=== PATIENT | female | born 1935 | race Caucasian/White ===

== ENCOUNTER 2016-11-23 14:33 | Observation (INO) | payer MEDICARE ==
[~2016-11-23] VITALS: Ht 177.8 cm; Wt 75.4 kg
[2016-11-23] VITALS (8 sets, daily range): BP systolic 119–155; BP diastolic 69–104; PULSE 66–102; RESP 18–20; TEMP 96.4–97.5; O2SAT 93–99
[~2016-11-23 14:33] MED LIST: ALL220TA PO; BUPR-197 PO; LEXA20TA PO; LORTA5 PO; OMEP20TA PO; PRIN20TA2 PO; ROSU5 PO; TIMO0.255 EACH EYE; XANA1TAB6 PO
[2016-11-23] MEDS ORDERED: SODIUM CHLORIDE 0.9% FLUSH 5 ML FLUSH IVF PRN ×2 (15:00→16:30)
[2016-11-23] MEDS ORDERED: ASPIRIN 325 MG TAB PO ONE (15:00)
--- NOTE | 2016-11-23 15:04 | PD ---
HPI Chief Complaint: Chest Pain Time Seen by Provider: 14:53 Travel History International Travel<30 days: No Contact w/Intl Traveler<30days: No Traveled to known affect area: No History of Present Illness HPI The patient was seen and examined in the presence of the nurse. She complains of chest pain. Location is left upper chest. It feels like a pressure. It can last for hours and eventually resolves on its own with no alleviating factors. Been going on for 2 weeks now. No pleuritic component. No fever or chest wall injury or shortness of breath. Never had a stress test since 1982. No history of cardiac disease. Symptom severity is moderate. PFSH Past Medical History Anxiety: Yes Depression: Yes Cancer: Yes (left breast, bilat mastectomy 1984) Cardiovascular Problems: Yes High Cholesterol: Yes Diabetes: No Endocrine: No Genitourinary: No Hepatitis: No Hiatal Hernia: Yes Hypertension: Yes Immune Disorder: No Musculoskeletal: Yes (ARTHRITIS) Neurologic: Yes (NEUROPATHY FEET/ LEGS) Psychiatric: Yes (ANXIETY, DEPRESSION) Reproductive: No Respiratory: No Immunizations Current: No Sickle Cell Disease: No Thyroid Disease: No Menopausal: Yes Past Surgical History AICD: No Body Medical Devices: BREASTS Cardiac Surgery: No Gynecologic Surgery: Yes (HYSTERECTOMY) Hysterectomy: Yes Joint Replacement: No Mastectomy: Yes (BILATERAL) Oral Surgery: Yes (T & A) Pacemaker: No Thoracic Surgery: Yes Tonsillectomy: Yes Other Surgery: Yes (bilat mastectomy, partial hysterectomy. ) Social History Alcohol Use: No Tobacco Use: No Substance Use: No Allergies-Medications (Allergen,Severity, Reaction): Coded Allergies: Keflex (Verified Allergy, Mild, RASH, 08/04/13) Codeine (Verified Adverse Reaction, Mild, NAUSEA, 08/04/13) Reported Meds & Prescriptions Reported Meds & Active Scripts Active Reported Alprazolam 1 Mg Tab 1 Mg PO Q6H PRN Rosuvastatin (Rosuvastatin Calcium) 5 Mg Tab 5 Mg PO DAILY Mirtazapine 15 Mg Tab 15 Mg PO HS Timolol Opth Drops 0.5 % Soln 1 Drop EACH EYE BID Lisinopril 20 Mg Tab 20 Mg PO DAILY Review of Systems General / Constitutional: No: Fever Eyes: No: Visual changes HENT: No: Headaches Cardiovascular: Positive: Chest Pain or Discomfort Respiratory: No: Shortness of Breath Gastrointestinal: No: Abdominal Pain Genitourinary: No: Dysuria Musculoskeletal: No: Pain Skin: No Rash Neurologic: No: Weakness Psychiatric: No: Depression Endocrine: No: Polydipsia Hematologic/Lymphatic: No: Easy Bruising Physical Exam Narrative GENERAL: Well-nourished, well-developed patient in no apparent distress. SKIN: Warm and dry. HEAD: Atraumatic. Normocephalic. EYES: Pupils equal and round. No scleral icterus. No injection or drainage. ENT: No nasal bleeding or discharge. Mucous membranes pink and moist. NECK: Trachea midline. No JVD. CARDIOVASCULAR: Regular rate and rhythm. No murmur appreciated. RESPIRATORY: No accessory muscle use. Clear to auscultation. Breath sounds equal bilaterally. GASTROINTESTINAL: Abdomen soft, non-tender, nondistended. Hepatic and splenic margins not palpable. MUSCULOSKELETAL: No obvious deformities. No clubbing. No cyanosis. No edema. No chest wall tenderness NEUROLOGICAL: Awake and alert. No obvious cranial nerve deficits. Motor grossly within normal limits. Normal speech. PSYCHIATRIC: Appropriate mood and affect; insight and judgment normal. Data Data Last Documented VS Vital Signs Date Time Temp Pulse Resp B/P Pulse Ox O2 Delivery O2 Flow Rate FiO2 11/23/16 15:23 81 16 11/23/16 15:23 97 11/23/16 14:37 97.5 137/104 Orders Basic Metabolic Panel (Bmp) (11/23/16 14:58) Ckmb (Isoenzyme) Profile (11/23/16 14:58) Complete Blood Count With Diff (11/23/16 14:58) Prothrombin Time / Inr (Pt) (11/23/16 14:58) Act Partial Throm Time (Ptt) (11/23/16 14:58) Troponin I (11/23/16 14:58) Ecg Monitoring (11/23/16 14:58) Iv Access Insert/Monitor (11/23/16 14:58) Oximetry (11/23/16 14:58) Aspirin (Aspirin) (11/23/16 15:00) Sodium Chloride 0.9% Flush (Ns Flush) (11/23/16 15:00) Chest, Single Ap (11/23/16 ) Admit Order (Ed Use Only) (11/23/16 15:53) Labs Laboratory Tests Test 11/23/16 14:50 White Blood Count 7.6 TH/MM3 Red Blood Count 4.95 MIL/MM3 Hemoglobin 13.8 GM/DL Hematocrit 43.0 % Mean Corpuscular Volume 86.8 FL Mean Corpuscular Hemoglobin 27.9 PG Mean Corpuscular Hemoglobin 32.1 % Concent Red Cell Distribution Width 12.2 % Platelet Count 228 TH/MM3 Mean Platelet Volume 8.3 FL Neutrophils (%) (Auto) 72.2 % Lymphocytes (%) (Auto) 20.8 % Monocytes (%) (Auto) 5.7 % Eosinophils (%) (Auto) 0.7 % Basophils (%) (Auto) 0.6 % Neutrophils # (Auto) 5.5 TH/MM3 Lymphocytes # (Auto) 1.6 TH/MM3 Monocytes # (Auto) 0.4 TH/MM3 Eosinophils # (Auto) 0.1 TH/MM3 Basophils # (Auto) 0.0 TH/MM3 CBC Comment DIFF FINAL Differential Comment Prothrombin Time 10.9 SEC Prothromb Time International 1.0 RATIO Ratio Activated Partial 26.6 SEC Thromboplast Time Sodium Level 133 MEQ/L Potassium Level 3.5 MEQ/L Chloride Level 97 MEQ/L Carbon Dioxide Level 25.1 MEQ/L Anion Gap 11 MEQ/L Blood Urea Nitrogen 6 MG/DL Creatinine 0.75 MG/DL Estimat Glomerular Filtration 74 ML/MIN Rate Random Glucose 102 MG/DL Calcium Level 8.6 MG/DL Total Creatine Kinase 40 U/L Troponin I LESS THAN 0.02 NG/ML MDM Medical Decision Making Medical Screen Exam Complete: Yes Emergency Medical Condition: Yes Medical Record Reviewed: Yes Differential Diagnosis Differential diagnosis includes OH, angina, pericarditis, pleurisy, GERD, anxiety. Narrative Course I have reviewed the patient's electronic medical record. IV placed I reviewed the EKG which shows sinus rhythm but no acute ST elevation I reviewed the chest x-ray which looks normal Extended cardiac monitoring shows sinus rhythm without ectopy CBC is normal Metabolic profile is normal CK is normal Troponin is normal Coagulation studies are normal I gave her an aspirin Patient's been having a lot of anxiety and stress lately. Her neighbor tells me that her son was recently shot and killed. However she is 81 and will require chest pain center evaluation for 23 hour observation on telemetry to rule out cardiac cause of her symptoms. Call is in place to the hospitalist to discuss Diagnosis Primary Impression: Precordial chest pain Admitting Information Admitting Physician Requests: Observation Christian Win MD Nov 23, 2016 15:04
[2016-11-23 15:22] LABS: AUTOMATED NEUTROPHIL # 5.5 TH/MM3 (1.8-7.7); BASOPHIL % 0.6 % (0.0-2.0); EOSINOPHIL # 0.1 TH/MM3 (0-0.4); EOSINOPHIL % 0.7 % (0.0-4.0); LYMPH % 20.8 % (9.0-44.0); LYMPHOCYTE # 1.6 TH/MM3 (1.0-4.8); MEAN CELL VOLUME 86.8 FL (80.0-100.0); MEAN CORPUSCULAR HEMOGLOBIN 27.9 PG (27.0-34.0); MEAN CORPUSCULAR HGB CONC 32.1 % (32.0-36.0); MONO % 5.7 % (0.0-8.0); NEUT % 72.2 % (16.0-70.0); PLATELET COUNT 228 TH/MM3 (150-450); RED BLOOD COUNT 4.95 MIL/MM3 (4.00-5.30); RED CELL DISTRIBUTION WIDTH 12.2 % (11.6-17.2); WHITE BLOOD COUNT 7.6 TH/MM3 (4.0-11.0)
[2016-11-23 15:23] LABS: HEMO FLAGS DIFF FINAL
[2016-11-23] MEDS ORDERED: MIRTA15 PO (15:29)
[2016-11-23] MEDS ORDERED: ROSU1TAB4 PO (15:29)
[2016-11-23] MEDS ORDERED: ALPR1TAB3 PO (15:29)
[2016-11-23] MEDS ORDERED: LISI-515 PO (15:29)
[2016-11-23] MEDS ORDERED: TIMO0.5S30 EACH EYE (15:29)
[2016-11-23 15:30] LABS: CHLORIDE 97 MEQ/L (98-107); POTASSIUM 3.5 MEQ/L (3.5-5.1); SODIUM (NA) 133 MEQ/L (136-145)
[2016-11-23 15:34] LABS: ANION GAP 11 MEQ/L (5-15); APTT (PATIENT) 26.6 SEC (24.3-30.1); BICARBONATE 25.1 MEQ/L (21.0-32.0); PROTHROMBIN TIME - PATIENT 10.9 SEC (9.8-11.6)
[2016-11-23 15:35] LABS: BLOOD UREA NITROGEN 6 MG/DL (7-18)
[2016-11-23 15:38] LABS: GLOMERULAR FILTRATION RATE 74 ML/MIN (>89)
[2016-11-23 15:43] LABS: CREATINE KINASE 40 U/L (26-192)
--- NOTE | 2016-11-23 15:57 | RADHPO ---
EXAM DATE/TIME: 11/23/2016 15:11 [facility] COMPARISON: CHEST PA & LAT, August 04, 2013, 9:59. INDICATIONS : Chest pain MEDICAL HISTORY : Hypertension. Asthma SURGICAL HISTORY : None. ENCOUNTER: Initial ACUITY: 3 days PAIN SCORE: 5/10 LOCATION: Bilateral chest FINDINGS: A single view of the chest demonstrates the lungs to be symmetrically aerated without evidence of mas s, infiltrate or effusion. The cardiomediastinal contours are unremarkable. Osseous structures are intact. CONCLUSION: No evidence of acute cardiopulmonary disease. Devaughn Parson MD on November 23, 2016 at 15:55 Board Certified Radiologist. This report was verified electronically.
[2016-11-23] MEDS ORDERED: NITROGLYCERIN 0.4 MG SL 25 TABS/BTL SL PRN (16:30)
[2016-11-23] MEDS ORDERED: ACETAMINOPHEN 500 MG CPLT PO PRN (17:00)
[2016-11-23] MEDS ORDERED: ALPRAZolam 1 MG TAB PO PRN (18:00)
[2016-11-23] MEDS ORDERED: ONDANSETRON HCL 4 MG/2 ML VIAL IV PRN (18:00)
--- NOTE | 2016-11-23 18:27 | HHI.HP ---
[facility] Zac Rosenbaum Admission Diagnosis chest pain Diagnoses: (1) Chest pain Diagnosis: Principal (2) Anxiety Diagnosis: Principal Chief Complaint: chest pain Travel History International Travel<30 Days: No Contact w/Intl Traveler <30 Da: No Traveled to Known Affected Are: No History of Present Illness 81 year-old female with history of hypertension, hyperlipidemia, GERD , bowel resection, breast cancer, anxiety and depression presents with complaint of chest pain located over the left anterior chest describes it as a heaviness. Patient states the pain has been building and has been worse in the last couple of weeks. Pain comes and goes. She states she could hardly breathe. Denies pain being associated with exertion. Denies any diaphoresis or numbness or tingling. She states she couldn't sleep. She states she takes Xanax 1 mg twice a day every day which hasn't been helping. She states she is weak. Patient that she has been suffering for 2 months and lives alone. She states her son in a road rage incident in August when he was shot 9 times. She does admit to history of panic attacks but she is not sure if it feels the same. Additionally states she has a wound to the leg from her dog and has had bandage in place for 4 days. Review of Systems Other ROS x 10 negative unless otherwise states above. Past Family Social History Past Medical History Anxiety and depression Breast cancer with bilateral mastectomy and reconstruction Hyperlipidemia Hypertension GERD EMR indicates history of sigmoid diverticulosis and colitis and patient states she has had 15 inches of her intestine including colon resected. Past Surgical History Bilateral mastectomy and reconstruction Hysterectomy Tonsillectomy and adenoidectomy Reported Medications Alprazolam 1 Mg Tab 1 Mg PO Q6H PRN Rosuvastatin (Rosuvastatin Calcium) 5 Mg Tab 5 Mg PO DAILY Mirtazapine 15 Mg Tab 15 Mg PO HS Timolol Opth Drops 0.5 % Soln 1 Drop EACH EYE BID Lisinopril 20 Mg Tab 20 Mg PO DAILY Allergies: Coded Allergies: Keflex (Verified Allergy, Mild, RASH, 08/04/13) Codeine (Verified Adverse Reaction, Mild, NAUSEA, 08/04/13) Family History Father and mother of heart disease. Brother at age 49 suddenly from heart disease. Social History Patient denies ever smoking cigarettes. Physical Exam Vital Signs Vital Signs Date Time Temp Pulse Resp B/P Pulse Ox O2 Delivery O2 Flow Rate FiO2 11/23/16 17:30 97.2 70 18 153/72 99 11/23/16 17:21 68 16 119/69 97 11/23/16 15:23 81 16 11/23/16 15:23 97 11/23/16 14:37 97.5 102 20 137/104 Physical Exam GENERAL: This is a well-nourished, well-developed patient, in no apparent distress. SKIN: Patient shows me a bandaged wound to the right proximal medial lower leg. There does not appear to be any erythema. HEAD: Atraumatic. Normocephalic. EYES: No scleral icterus. No injection or drainage. NECK: Trachea midline. CARDIOVASCULAR: Regular rate and rhythm. RESPIRATORY: Clear to auscultation. Breath sounds equal bilaterally. No wheezes , rales, or rhonchi. GASTROINTESTINAL: Abdomen soft, non-tender, nondistended. MUSCULOSKELETAL: No lower extremity edema bilaterally. NEUROLOGICAL: Awake and alert. Motor grossly within normal limits. Normal speech. Laboratory Laboratory Tests Test 11/23/16 14:50 White Blood Count 7.6 Red Blood Count 4.95 Hemoglobin 13.8 Hematocrit 43.0 Mean Corpuscular Volume 86.8 Mean Corpuscular Hemoglobin 27.9 Mean Corpuscular Hemoglobin 32.1 Concent Red Cell Distribution Width 12.2 Platelet Count 228 Mean Platelet Volume 8.3 Neutrophils (%) (Auto) 72.2 Lymphocytes (%) (Auto) 20.8 Monocytes (%) (Auto) 5.7 Eosinophils (%) (Auto) 0.7 Basophils (%) (Auto) 0.6 Neutrophils # (Auto) 5.5 Lymphocytes # (Auto) 1.6 Monocytes # (Auto) 0.4 Eosinophils # (Auto) 0.1 Basophils # (Auto) 0.0 CBC Comment DIFF FINAL Differential Comment Prothrombin Time 10.9 Prothromb Time International 1.0 Ratio Activated Partial 26.6 Thromboplast Time Sodium Level 133 Potassium Level 3.5 Chloride Level 97 Carbon Dioxide Level 25.1 Anion Gap 11 Blood Urea Nitrogen 6 Creatinine 0.75 Estimat Glomerular Filtration 74 Rate Random Glucose 102 Calcium Level 8.6 Total Creatine Kinase 40 Troponin I LESS THAN 0.02 Result Diagram: 11/23/16 1450 11/23/16 1450 Assessment and Plan Assessment and Plan 81 year-old female with: Chest pain: Left anterior chest heaviness. Likely due to anxiety. CBC unremarkable. Troponin 1 < 0.02. EKG #[address]-T changes, primarily T-wave inversion in inferior, anterior, and lateral leads. -Serial EKGs and cardiac enzymes -Nitroglycerin prn chest pain -Patient received 325 mg aspirin in ED at 1507 today -If ACS ruled out, patient will need to undergo a nuclear stress test. Nothing by mouth after midnight. No caffeine or decaf after 7 PM. Anxiety: Patient has significant anxiety. She does not wish to go see a psychiatrist. -Continue home alprazolam. R leg wound: minor. RN order to clean and dress. Did not appear infected around bandage. Afebrile. Chronic medical problems include hypertension and hyperlipidemia. -Continue home medications. DVT prevention: SCDs. Written by Zainab Martinez PA-C acting as scribe for Dr. Roque on 11/23/16 at 1750. The documentation accurately reflects the work and decisions performed face-to- face by me Dr. Roque on 11/23/16 at 1750. Discussed Condition With ED physician, patient Zainab Martinez Nov 23, 2016 18:27
[2016-11-23 18:58] LABS: CREATINE KINASE 39 U/L (26-192)
[2016-11-23] MEDS ORDERED: MIRTAZAPINE 15 MG TAB PO SCH (21:00)
[2016-11-23] MEDS: TIMOLOL MALEATE 0.5% OPHT SOLN 5 ML BTL EACH EYE SCH (22:20)
[2016-11-23] MEDS: SODIUM CHLORIDE 0.9% FLUSH 5 ML FLUSH IVF SCH (22:21)
[2016-11-23 22:38] LABS: CREATINE KINASE 36 U/L (26-192)
[2016-11-24] VITALS: BP 139/62; PULSE 71; RESP 16; TEMP 96.9; O2SAT 94
[2016-11-24 04:00] VITALS: BP 121/62; PULSE 70; RESP 16; TEMP 96; O2SAT 95
[2016-11-24 08:00] VITALS: BP 147/88; PULSE 80; RESP 19; TEMP 98.1; O2SAT 93
[2016-11-24 08:14] VITALS: PULSE 73
[2016-11-24] MEDS ORDERED: LISINOPRIL 20 MG TAB PO SCH (09:00)
[2016-11-24] MEDS: TIMOLOL MALEATE 0.5% OPHT SOLN 5 ML BTL EACH EYE SCH (09:00)
[2016-11-24] MEDS ORDERED: ATORVASTATIN 10 MG TAB PO SCH (09:00)
[2016-11-24] MEDS: SODIUM CHLORIDE 0.9% FLUSH 5 ML FLUSH IVF SCH (09:04)
[2016-11-24] MEDS ORDERED: REGADENOSON INJ 0.4 MG/5 ML SYR IV ONE (10:02)
--- NOTE | 2016-11-24 11:40 | RADHPO ---
EXAM DATE/TIME: 11/24/2016 10:31 [facility] COMPARISON: No previous studies available for comparison. INDICATIONS : Left chest pain for two weeks. Right bundle branch block. DOSE: 25.7 mCi Tc99m Myoview at stress. 8.4 mCi Tc99m Myoview at rest. 0.4 mg Lexiscan STRESS SYMPTOMS: Dyspnea and lightheadedness. EJECTION FRACTION: > 70% MEDICAL HISTORY : Hypercholesterolemia. Hernia, hiatal. Gastroesophageal reflux disease. Hypertension. SURGICAL HISTORY : Tonsillectomy. Hysterectomy. Mastectomy, bilateral. Bowel resection. ENCOUNTER: Initial ACUITY: 2 weeks PAIN SCALE: 5/10 LOCATION: Left chest TECHNIQUE: The patient underwent pharmacologic stress with infusion of prescribed dose. Continuous ECG tracing was monitored during stress. Gated SPECT imaging was performed after stress and conventional SPECT i maging was performed at rest. The examination was performed on a SPECT/CT scanner, both attenuation and non-corrected datasets were reviewed. FINDINGS: DISTRIBUTION: The maximum perfused segment at stress is in the apical wall. PERFUSION STUDY: The pattern of perfusion at stress is within normal limits. GATED STUDY: There is intact wall motion and thickening without hypokinetic or dyskinetic segments. CONCLUSION: Unremarkable myocardial perfusion exam. RISK CATEGORY: Low Clint Herring MD on November 24, 2016 at 11:38 Board Certified Radiologist. This report was verified electronically.
--- NOTE | 2016-11-24 11:42 | HHI.DCPOC ---
Discharge Care Plan Diagnosis: (1) Chest pain Goals to Promote Your Health * To prevent worsening of your condition and complications * To maintain your health at the optimal level Directions to Meet Your Goals Take your medications as prescribed Follow your dietary instruction Follow activity as directed Keep your appointments as scheduled Take your immunizations and boosters as scheduled If your symptoms worsen call your PCP, if no PCP go to Urgent Care Center or Emergency Room Smoking is Dangerous to Your Health. Avoid second hand smoke Call the 24-hour hour crisis hotline for domestic abuse at Christian Araiza Nov 24, 2016 11:41
--- NOTE | 2016-11-24 11:57 | HHI.PR ---
Subjective Remarks Patient seen and examined today. Patient denies any new complaints. Patient states that anxiety is much improved. Has not had any recurrent panic attacks Objective Vitals Vital Signs Date Time Temp Pulse Resp B/P Pulse Ox O2 Delivery O2 Flow Rate FiO2 11/24/16 08:14 73 11/24/16 08:00 98.1 80 19 147/88 93 11/24/16 04:00 96.0 70 16 121/62 95 11/24/16 00:00 96.9 71 16 139/62 94 11/23/16 20:32 68 11/23/16 20:00 96.4 74 18 155/75 97 11/23/16 19:58 93 21 11/23/16 18:42 66 11/23/16 17:30 97.2 70 18 153/72 99 11/23/16 17:21 68 16 119/69 97 11/23/16 15:23 81 16 11/23/16 15:23 97 11/23/16 14:37 97.5 102 20 137/104 I/O 11/23/16 11/23/16 11/23/16 11/24/16 11/24/16 11/24/16 06:59 14:59 22:59 06:59 14:59 22:59 Intake Total 0 ml 0 ml Balance 0 ml 0 ml Intake IV Total 0 ml 0 ml # Voids 3 2 # Bowel Movements 1 0 Result Diagram: 11/23/16 1450 11/23/16 1450 Objective Remarks GENERAL: Well-developed, well-nourished, in no acute distress. alert and orientated HEENT: Head is normocephalic without any lesions or masses noted. Facial features are symmetric. Eyes: Extraocular muscles are intact. Conjunctivae were clear. NECK: Supple without any masses. Trachea midline no deviation. No JVD, CARDIAC: Regular rhythm, regular rate. S1/S2 are heard. No murmurs gallops or rubs. LUNGS: Clear to auscultation bilaterally. No wheeze, rhonchi or rales. No use of accessory muscles on inspiration or expiration. ABDOMEN: Soft, nontender. Nondistended. Bowel sounds heard in all 4 quadrants. No organomegaly or masses. Negative rebound, negative guarding EXTREMITIES: No edema, pulses are equal bilaterally. No cyanosis or clubbing NEUROLOGY: Mood and affect appear appropriate. Cranial nerves II through XII grossly intact. Moving all extremities, speech is clear Urinary Catheter: No Vascular Central Line Catheter: No A/P Assessment and Plan Chest pain: Left anterior chest heaviness. Resolved -Likely due to anxiety. -Serial EKGs do not indicate any changes -Serial cardiac enzymes remain negative -Nitroglycerin prn chest pain -Patient received 325 mg aspirin in ED at 1507 today -Acute coronary event has been ruled out. Patient did undergo nuclear stress test which was unremarkable for any ischemia. Low risk Anxiety: Patient has significant anxiety. She does not wish to go see a psychiatrist. -Continue home alprazolam. R leg wound: minor. RN order to clean and dress. Did not appear infected around bandage. Afebrile. Chronic medical problems include hypertension and hyperlipidemia. -Continue home medications. DVT prevention: SCDs. Written by Christian Araiza PA-C, acting as scribe for Dr. Roque on 11/24/16 at 1145. The documentation accurately reflects the work and decisions performed face-to- face by Dr. Roque on 11/24/16 at 1145. Discharge Planning Discharge home in stable condition Activity: Ad windy. Diet: Healthy heart diet Medications per medication reconciliation Follow-up primary medical doctor in one week Christian Araiza Nov 24, 2016 11:57
[2016-11-24 12:00] VITALS: BP 138/82; PULSE 78; RESP 18; TEMP 98; O2SAT 94
--- NOTE | 2016-11-24 16:57 | EKG ---
Date Performed: 11/23/2016 Time Performed: 14:55:00 PTAGE: 81 years EKG: Sinus rhythm Leftward axis Extensive ST-T changes may be due to myocardial ischemia Abnormal ECG Since PREVIOUS TRACING , no significant change noted PREVIOUS TRACIN08/04/2013 09.33 DOCTOR: Fide Hollingsworth Interpretating Date/Time 11/24/2016 16:57:20
--- NOTE | 2016-11-24 16:57 | EKG ---
Date Performed: 11/23/2016 Time Performed: 18:02:36 PTAGE: 81 years EKG: Sinus rhythm . Extensive ST-T changes may be due to myocardial ischemia Abnormal ECG Since PREVIOUS TRACING , no significant change noted PREVIOUS TRACIN08/04/2013 09.33 DOCTOR: Fide Hollingsworth Interpretating Date/Time 11/24/2016 16:57:31
--- NOTE | 2016-11-24 17:00 | EKG ---
Date Performed: 11/23/2016 Time Performed: 21:05:08 PTAGE: 81 years EKG: Sinus rhythm . Leftward axis Right bundle branch block Possible left ventricular hypertrophy Inferior/lateral ST-T changes are probably due to ventricular hypertrophy Since previous tracing, no significant change no clement Abnormal ECG PREVIOUS TRACING : 11/23/2016 18.02 DOCTOR: Fide Hollingsworth Interpretating Date/Time 11/24/2016 16:57:54
--- NOTE | 2016-11-24 17:03 | TR ---
Date Performed: 11/24/2016 Time Performed: 10:37:49 DOCTOR: Fide Hollingsworth DRUG LIST: CLINICAL HISTORY: REASON FOR TEST: Chest pain. REASON FOR ENDING: OBSERVATION: CONCLUSION: Lexiscan stress test was performed under standard four minute protocol. Radionuclid e was injected one minute prior to ending the test. No electrocardiographic abormalities were present to suggest ischemia. Nuclear imaging and interpretation are pending. COMMENTS:
== END 2016-11-24 13:45 | disposition home or self-care (01) ==
LOC: PHED 14:33 → PHEDA 15:54 → PH3A 17:27
PROVIDERS: ADMIT Family Medicine; ATTEND Family Medicine
DX: R07.2 Precordial pain (principal); E78.00 Pure hypercholesterolemia, unspecified; I10 Essential (primary) hypertension; K44.9 Diaphragmatic hernia without obstruction or gangrene; K21.9 Gastro-esophageal reflux disease without esophagitis; E78.5 Hyperlipidemia, unspecified; K57.30 Diverticulosis of large intestine without perforation or abscess without bleeding; M19.90 Unspecified osteoarthritis, unspecified site; Z85.3 Personal history of malignant neoplasm of breast; Z90.13 Acquired absence of bilateral breasts and nipples
CPT/HCPCS: 71010; 78452; 80048; 82550; 84484; 85025; 85610; 85730; 93005; 93017; 99285; A9502; G0378; J2785

== ENCOUNTER 2017-05-17 07:34 | Observation (INO) | payer MEDICARE ==
[~2017-05-17] VITALS: Ht 172.7 cm; Wt 70.0 kg
[~2017-05-17 07:34] MED LIST changes: -ALL220TA PO; +ALPR1TAB3 PO; -BUPR-197 PO; -LEXA20TA PO; +LISI-515 PO; -LORTA5 PO; +MIRTA15 PO; -OMEP20TA PO; -PRIN20TA2 PO; +ROSU1TAB4 PO; -ROSU5 PO; -TIMO0.255 EACH EYE; +TIMO0.5S30 EACH EYE; -XANA1TAB6 PO
[2017-05-17 07:37] VITALS: BP 122/67; PULSE 93; RESP 20; TEMP 98.3; O2SAT 98
[2017-05-17 07:40] VITALS: BP 122/67; PULSE 90; RESP 18; O2SAT 99
[2017-05-17] MEDS ORDERED: SODIUM CHLOR 0.9% 1000 ML INJ 1,000 ML IV ONE (07:57)
--- NOTE | 2017-05-17 07:59 | PD ---
HPI Chief Complaint: Fall Time Seen by Provider: 07:57 Travel History International Travel<30 days: No Contact w/Intl Traveler<30days: No Traveled to known affect area: No History of Present Illness HPI Patient is an 81-year-old female with history of hypertension, hyperlipidemia, GERD, bowel resection, breast cancer, anxiety, depression, presents to the emergency with syncopal episodes. Patient reports that she lives at home by herself and her pets. Patient reports that she also has history of sciatica for the past 20 years. Reports that her sciatica has been acting up since - denies any prior falls leading up to her sciatica. Reports that she now has to use her neighbor's walker to ambulate because of her left hip pain and sciatica. Patient reports that this morning, she got out of her bed and was walking with her walker. Patient reports that she felt lightheaded and dizzy and passed out landing onto a floor in her home. Patient reports that she thinks that she was "passed out" for about 15 minutes at a time. Denies chest pain/sob. She does report a laceration to her right scalp. Patient reports that she currently is not on anticoagulants, reports headache at this time, no neck pain, no back pain, or chest pain or abdominal pain. Patient reports that she is unable to ambulate and complains of pain to her left hip. PFSH Past Medical History Anxiety: Yes Depression: Yes Heart Rhythm Problems: No Cancer: Yes (left breast, bilat mastectomy 1984) Cardiac Catheterization: No Cardiovascular Problems: No High Cholesterol: Yes Congestive Heart Failure: No Diabetes: No Diminished Hearing: No Diverticulitis: Yes Endocrine: No Gastrointestinal Disorders: Yes (GERD) Genitourinary: No Headaches: Yes Hepatitis: No Hiatal Hernia: Yes Heparin Induced Thrombocytopen: No Hypertension: Yes Immune Disorder: No Musculoskeletal: Yes (ARTHRITIS) Neurologic: Yes (NEUROPATHY FEET/ LEGS) Psychiatric: Yes (ANXIETY, DEPRESSION) Reproductive: No Respiratory: No Immunizations Current: No Sickle Cell Disease: No Thyroid Disease: No Tetanus Vaccination: Unknown Influenza Vaccination: No Menopausal: Yes Past Surgical History Abdominal Surgery: Yes (50 IN OF INTESTINES REMOVED AND PARTIAL COLON ) AICD: No Body Medical Devices: BREASTS Cardiac Surgery: No Coronary Artery Bypass Graft: No Gynecologic Surgery: Yes (HYSTERECTOMY) Hysterectomy: Yes Joint Replacement: No Mastectomy: Yes (BILATERAL) Neurologic Surgery: No Oral Surgery: Yes (T & A) Pacemaker: No Thoracic Surgery: Yes Tonsillectomy: Yes (T & A) Other Surgery: Yes (bilat mastectomy, partial hysterectomy. ) Family History Family Myocardial Infarction: Yes Social History Alcohol Use: No Tobacco Use: No Substance Use: No Allergies-Medications (Allergen,Severity, Reaction): Coded Allergies: Keflex (Verified Allergy, Mild, RASH, 05/17/17) Codeine (Verified Adverse Reaction, Mild, NAUSEA, 05/17/17) Reported Meds & Prescriptions Reported Meds & Active Scripts Active Reported Alprazolam 1 Mg Tab 1 Mg PO Q6H PRN Rosuvastatin (Rosuvastatin Calcium) 5 Mg Tab 5 Mg PO DAILY Mirtazapine 15 Mg Tab 15 Mg PO HS Timolol Opth Drops 0.5 % Soln 1 Drop EACH EYE BID Lisinopril 20 Mg Tab 20 Mg PO DAILY Review of Systems General / Constitutional: No: Fever Eyes: No: Visual changes HENT: No: Headaches Cardiovascular: No: Chest Pain or Discomfort Respiratory: No: Shortness of Breath Gastrointestinal: No: Abdominal Pain Genitourinary: No: Dysuria Musculoskeletal: No: Pain Skin: No Rash Neurologic: Positive: Weakness, Syncope Psychiatric: No: Depression Endocrine: No: Polydipsia Hematologic/Lymphatic: No: Easy Bruising Physical Exam Narrative GENERAL: mild distress SKIN: Focused skin assessment warm/dry. patient with 1cm laceration to right lateral scalp HEAD: Atraumatic. Normocephalic. EYES: Pupils equal and round. No scleral icterus. No injection or drainage. ENT: No nasal bleeding or discharge. Mucous membranes pink and moist. NECK: Trachea midline. No JVD. CARDIOVASCULAR: Regular rate and rhythm. No murmur appreciated. RESPIRATORY: No accessory muscle use. Clear to auscultation. Breath sounds equal bilaterally. GASTROINTESTINAL: Abdomen soft, non-tender, nondistended. Hepatic and splenic margins not palpable. MUSCULOSKELETAL: No obvious deformities, patient with pain with ROM to left hip , No edema. NEUROLOGICAL: Awake and alert. No obvious cranial nerve deficits. Motor grossly within normal limits. Normal speech. PSYCHIATRIC: Appropriate mood and affect; insight and judgment normal. Data Data Last Documented VS Vital Signs Date Time Temp Pulse Resp B/P Pulse Ox O2 Delivery O2 Flow Rate FiO2 05/17/17 07:40 18 99 Room Air 05/17/17 07:40 90 122/67 05/17/17 07:37 98.3 Orders Electrocardiogram (05/17/17 07:57) Complete Blood Count With Diff (05/17/17 07:57) Comprehensive Metabolic Panel (05/17/17 07:57) Magnesium (Mg) (05/17/17 07:57) B-Type Natriuretic Peptide (05/17/17 07:57) Ckmb (Isoenzyme) Profile (05/17/17 07:57) Troponin I (05/17/17 07:57) Act Partial Throm Time (Ptt) (05/17/17 07:57) Prothrombin Time / Inr (Pt) (05/17/17 07:57) Urinalysis - C+S If Indicated (05/17/17 07:57) Chest, Single Ap (05/17/17 07:57) Ct Brain W/O Iv Contrast(Rout) (05/17/17 07:57) Ct Cerv Spine W/O Contrast (05/17/17 07:57) Ecg Monitoring (05/17/17 07:57) Iv Access Insert/Monitor (05/17/17 07:57) Oximetry (05/17/17 07:57) Sodium Chloride 0.9% Flush (Ns Flush) (05/17/17 08:00) Sodium Chlor 0.9% 1000 Ml Inj (Ns 1000 M (05/17/17 07:57) Hip, Uni(Ap&Lat) W Ap Pelvis (05/17/17 ) Tetanus/Diphtheria Tox Adult (Tetanus/Di (05/17/17 08:00) Acetaminophen (Tylenol) (05/17/17 08:15) Electrocardiogram (05/17/17 ) Labs Laboratory Tests Test 05/17/17 08:25 White Blood Count 9.4 TH/MM3 Red Blood Count 4.40 MIL/MM3 Hemoglobin 12.6 GM/DL Hematocrit 37.2 % Mean Corpuscular Volume 84.5 FL Mean Corpuscular Hemoglobin 28.6 PG Mean Corpuscular Hemoglobin 33.8 % Concent Red Cell Distribution Width 12.9 % Platelet Count 157 TH/MM3 Mean Platelet Volume 8.4 FL Neutrophils (%) (Auto) 84.9 % Lymphocytes (%) (Auto) 7.3 % Monocytes (%) (Auto) 7.4 % Eosinophils (%) (Auto) 0.2 % Basophils (%) (Auto) 0.2 % Neutrophils # (Auto) 8.0 TH/MM3 Lymphocytes # (Auto) 0.7 TH/MM3 Monocytes # (Auto) 0.7 TH/MM3 Eosinophils # (Auto) 0.0 TH/MM3 Basophils # (Auto) 0.0 TH/MM3 CBC Comment DIFF FINAL Differential Comment Prothrombin Time 10.5 SEC Prothromb Time International 1.0 RATIO Ratio Activated Partial 21.5 SEC Thromboplast Time Sodium Level 134 MEQ/L Potassium Level 4.0 MEQ/L Chloride Level 101 MEQ/L Carbon Dioxide Level 25.5 MEQ/L Anion Gap 8 MEQ/L Blood Urea Nitrogen 11 MG/DL Creatinine 0.65 MG/DL Estimat Glomerular Filtration 88 ML/MIN Rate Random Glucose 108 MG/DL Calcium Level 9.1 MG/DL Magnesium Level 2.2 MG/DL Total Bilirubin 0.8 MG/DL Aspartate Amino Transf 20 U/L (AST/SGOT) Alanine Aminotransferase 24 U/L (ALT/SGPT) Alkaline Phosphatase 77 U/L Total Creatine Kinase 70 U/L Troponin I LESS THAN 0.02 NG/ML B-Type Natriuretic Peptide 35 PG/ML Total Protein 6.9 GM/DL Albumin 2.7 GM/DL MDM Medical Decision Making Medical Screen Exam Complete: Yes Emergency Medical Condition: Yes Interpretation(s) Vital Signs Date Time Temp Pulse Resp B/P Pulse Ox O2 Delivery O2 Flow Rate FiO2 05/17/17 07:40 90 18 122/67 99 05/17/17 07:37 98.3 93 20 122/67 98 Differential Diagnosis Syncopal episode could be secondary to ACS, electrolyte abnormality, intracranial hemorrhage, UTI, infection, sciatica Narrative Course 81-year-old female who presents to emergency room with syncopal episode. Patient lives at home by herself, reports that she ambulating today, she felt lightheaded and dizzy and "passed out for 15 minutes" this morning. Patient reports that she has not been able to ambulate as she has pain to her left hip. Patient currently not on any anticoagulants, complete of a headache. Plan to obtain CT of her head and neck, x-rays of her chest, left hip and pelvis ordered as she does have pain with range of motion to her left hip. Lab work ordered to evaluate for possible electrolyte abnormalities. Patient was placed on a cardiac rehab nurse upon arrival to the emergency room. Laboratory Tests Test 05/17/17 08:25 White Blood Count 9.4 TH/MM3 (4.0-11.0) Red Blood Count 4.40 MIL/MM3 (4.00-5.30) Hemoglobin 12.6 GM/DL (11.6-15.3) Hematocrit 37.2 % (35.0-46.0) Mean Corpuscular Volume 84.5 FL (80.0-100.0) Mean Corpuscular Hemoglobin 28.6 PG (27.0-34.0) Mean Corpuscular Hemoglobin 33.8 % Concent (32.0-36.0) Red Cell Distribution Width 12.9 % (11.6-17.2) Platelet Count 157 TH/MM3 (150-450) Mean Platelet Volume 8.4 FL (7.0-11.0) Neutrophils (%) (Auto) 84.9 % (16.0-70.0) Lymphocytes (%) (Auto) 7.3 % (9.0-44.0) Monocytes (%) (Auto) 7.4 % (0.0-8.0) Eosinophils (%) (Auto) 0.2 % (0.0-4.0) Basophils (%) (Auto) 0.2 % (0.0-2.0) Neutrophils # (Auto) 8.0 TH/MM3 (1.8-7.7) Lymphocytes # (Auto) 0.7 TH/MM3 (1.0-4.8) Monocytes # (Auto) 0.7 TH/MM3 (0-0.9) Eosinophils # (Auto) 0.0 TH/MM3 (0-0.4) Basophils # (Auto) 0.0 TH/MM3 (0-0.2) CBC Comment DIFF FINAL Differential Comment Prothrombin Time 10.5 SEC (9.8-11.6) Prothromb Time International 1.0 RATIO Ratio Activated Partial 21.5 SEC Thromboplast Time (24.3-30.1) Sodium Level 134 MEQ/L (136-145) Potassium Level 4.0 MEQ/L (3.5-5.1) Chloride Level 101 MEQ/L (98-107) Carbon Dioxide Level 25.5 MEQ/L (21.0-32.0) Anion Gap 8 MEQ/L (5-15) Blood Urea Nitrogen 11 MG/DL (7-18) Creatinine 0.65 MG/DL (0.50-1.00) Estimat Glomerular Filtration 88 ML/MIN (>89) Rate Random Glucose 108 MG/DL (74-106) Calcium Level 9.1 MG/DL (8.5-10.1) Magnesium Level 2.2 MG/DL (1.5-2.5) Total Bilirubin 0.8 MG/DL (0.2-1.0) Aspartate Amino Transf 20 U/L (15-37) (AST/SGOT) Alanine Aminotransferase 24 U/L (10-53) (ALT/SGPT) Alkaline Phosphatase 77 U/L (45-117) Total Creatine Kinase 70 U/L (26-192) Troponin I LESS THAN 0.02 NG/ML (0.02-0.05) B-Type Natriuretic Peptide 35 PG/ML (0-100) Total Protein 6.9 GM/DL (6.4-8.2) Albumin 2.7 GM/DL (3.4-5.0) Last Impressions Head CT 05/17/17 075 Signed Impressions: Service Date/Time: Wednesday, May 17, 2017 08:28 - CONCLUSION: Negative for acute process. Pierre Garnett MD FACR Chest X-Ray 05/17/17 075 Signed Impressions: Service Date/Time: Wednesday, May 17, 2017 09:02 - CONCLUSION: No acute cardiopulmonary abnormality is identified. Devaughn Robert MD Cervical Spine CT 05/17/17 0757 Signed Impressions: Service Date/Time: Wednesday, May 17, 2017 08:31 - CONCLUSION: Negative for fracture. Mild degenerative changes. Pierre Garnett MD FACR Hip and Pelvis X-Ray 05/17/17 0000 Signed Impressions: Service Date/Time: Wednesday, May 17, 2017 08:57 - CONCLUSION: Unremarkable examination of the left hip. Devaughn Birch MD Reviewed all labs and studies with patient in detail. Patient lives at home by herself, she is unable to ambulate. Patient will require admission for syncope workup, she may require rehab as she is unable to ambulate and care for herself at this time Procedures Procedure Narrative LACERATION LOCATION: right scalp LENGTH: 1cm NUMBER OF STITCHES/KACI: 2 kaci REPAIR: The area of the laceration was prepped with Betadine and sterilely draped. The wound was copiously irrigated and explored without evidence of foreign body, tendon injury or neurovascular injury. The wound was closed using 2 kaci. This was a single layer repair. A sterile dressing was applied. The patient was advised to keep the dressing clean and dry. Patient tolerated the procedure well. Physician Communication Physician Communication Case reviewed with Dr. Jefferson who accepts patient to service. Diagnosis Primary Impression: Syncope and collapse Additional Impressions: Gait instability Scalp laceration Admitting Information Admitting Physician Requests: Observation Louise Koroma DO May 17, 2017 07:59
[2017-05-17] MEDS ORDERED: SODIUM CHLORIDE 0.9% FLUSH 10 ML FLUSH IVF PRN (08:00)
[2017-05-17] MEDS ORDERED: TETANUS/DIPHTHERIA TOXOID ADULT 0.5 ML VIAL IM ONE (08:00)
[2017-05-17] MEDS ORDERED: ACETAMINOPHEN 325 MG TAB PO ONE (08:15)
[2017-05-17 08:43] LABS: BASOPHIL % 0.2 % (0.0-2.0); EOSINOPHIL % 0.2 % (0.0-4.0); HEMATOCRIT 37.2 % (35.0-46.0); HEMO FLAGS DIFF FINAL; LYMPH % 7.3 % (9.0-44.0); LYMPHOCYTE # 0.7 TH/MM3 (1.0-4.8); MEAN CELL VOLUME 84.5 FL (80.0-100.0); MEAN CORPUSCULAR HEMOGLOBIN 28.6 PG (27.0-34.0); MEAN CORPUSCULAR HGB CONC 33.8 % (32.0-36.0); MONO % 7.4 % (0.0-8.0); NEUT % 84.9 % (16.0-70.0); PLATELET COUNT 157 TH/MM3 (150-450); RED CELL DISTRIBUTION WIDTH 12.9 % (11.6-17.2); WHITE BLOOD COUNT 9.4 TH/MM3 (4.0-11.0)
[2017-05-17 08:49] LABS: PROTHROMBIN TIME - PATIENT 10.5 SEC (9.8-11.6)
[2017-05-17 08:52] LABS: APTT (PATIENT) 21.5 SEC (24.3-30.1)
[2017-05-17 08:56] LABS: ALT (GPT) 24 U/L (10-53); ANION GAP 8 MEQ/L (5-15); AST (GOT) 20 U/L (15-37); BICARBONATE 25.5 MEQ/L (21.0-32.0); BLOOD UREA NITROGEN 11 MG/DL (7-18); CHLORIDE 101 MEQ/L (98-107); GLOMERULAR FILTRATION RATE 88 ML/MIN (>89); MAGNESIUM 2.2 MG/DL (1.5-2.5); SODIUM (NA) 134 MEQ/L (136-145)
[2017-05-17 09:00] LABS: ALKALINE PHOSPHATASE 77 U/L (45-117); CREATINE KINASE 70 U/L (26-192); TOTAL BILIRUBIN ADULT 0.8 MG/DL (0.2-1.0)
--- NOTE | 2017-05-17 09:09 | RADRPT ---
EXAM DATE/TIME: 05/17/2017 08:28 [facility] COMPARISON: No previous studies available for comparison. INDICATIONS : Syncope. RADIATION DOSE: 56.35 CTDIvol (mGy) MEDICAL HISTORY : Hypertension. SURGICAL HISTORY : Tonsillectomy. ENCOUNTER: Initial ACUITY: 1 day PAIN SCALE: 0/10 LOCATION: cranial TECHNIQUE: Multiple contiguous axial images were obtained of the head. Using automated exposure control and adj ustment of the mA and/or kV according to patient size, radiation dose was kept as low as reasonably a chievable to obtain optimal diagnostic quality images. DICOM format image data is available electro nically for review and comparison. FINDINGS: CEREBRUM: The ventricles are normal for age. No evidence of midline shift, mass lesion, hemorrhage or acute in farction. Minimal periventricular white matter changes are present. No extra-axial fluid collection s are seen. POSTERIOR FOSSA: The cerebellum and brainstem are intact. Periventricular white matter changes extend into the brachi um pontis and brainstem. The 4th ventricle is midline. The cerebellopontine angle is unremarkable. EXTRACRANIAL: The visualized portion of the orbits is intact. SKULL: The calvaria is intact. No evidence of skull fracture. CONCLUSION: Negative for acute process. Pierre Garnett MD FACR on May 17, 2017 at 9:06 Board Certified Radiologist. This report was verified electronically.
--- NOTE | 2017-05-17 09:12 | RADRPT ---
EXAM DATE/TIME: 05/17/2017 08:31 [facility] COMPARISON: No previous studies available for comparison. INDICATIONS : Syncope. RADIATION DOSE: 32.08 CTDIvol (mGy) MEDICAL HISTORY : Hypertension. SURGICAL HISTORY : Tonsillectomy. ENCOUNTER: Initial ACUITY: 1 day PAIN SCALE: 4/10 LOCATION: Bilateral neck TECHNIQUE: Volumetric scanning of the cervical spine was performed. Multiplanar reconstructions in the sagittal, coronal and oblique axial planes were performed. Using automated exposure control and adjustment o f the mA and/or kV according to patient size, radiation dose was kept as low as reasonably achievable to obtain optimal diagnostic quality images. DICOM format image data is available electronically f or review and comparison. FINDINGS: VERTEBRAE: Normal vertebral body height. ALIGNMENT: No evidence of subluxation. C2-C3: The bony spinal canal is normal in size. No evidence of disc bulge or herniation. The neural forami na are bilaterally patent. C3-C4: The bony spinal canal is normal in size. No evidence of disc bulge or herniation. The neural forami na are bilaterally patent. C4-C5: Mild uncinate ridging is present without significant spinal stenosis. C5-C6: Moderate uncinate ridging is present with minimal left-sided neural foramen encroachment. Anterior o steophytes are evident. C6-C7: Mild uncinate ridge is present without significant spinal stenosis. C7-T1: The bony spinal canal is normal in size. No evidence of disc bulge or herniation. The neural forami na are bilaterally patent. CONCLUSION: Negative for fracture. Mild degenerative changes. Pierre Garnett MD FACR on May 17, 2017 at 9:08 Board Certified Radiologist. This report was verified electronically.
--- NOTE | 2017-05-17 09:28 | RADRPT ---
EXAM DATE/TIME: 05/17/2017 09:02 [facility] COMPARISON: CHEST SINGLE AP, November 23, 2016, 15:11. INDICATIONS : Chest discomfort; fall today. MEDICAL HISTORY : Hypertension. SURGICAL HISTORY : None. ENCOUNTER: Initial ACUITY: 1 day PAIN SCORE: 1/10 LOCATION: Bilateral chest FINDINGS: Portable AP view of the chest demonstrates a normal-sized cardiac silhouette. No effusion, consolidat ion, or pneumothorax is visualized. The bones and soft tissues demonstrate no acute abnormality. CONCLUSION: No acute cardiopulmonary abnormality is identified. Devaughn Robert MD on May 17, 2017 at 9:21 Board Certified Radiologist. This report was verified electronically.
--- NOTE | 2017-05-17 09:35 | RADRPT ---
EXAM DATE/TIME: 05/17/2017 08:57 [facility] COMPARISON: No previous studies available for comparison. INDICATIONS : Left hip pain; fall today. MEDICAL HISTORY : None. SURGICAL HISTORY : None. ENCOUNTER: Initial ACUITY: 1 day PAIN SCORE: 6/10 LOCATION: Left hip FINDINGS: Examination of the left hip was performed with AP Pelvis. The primary and secondary trabecular patte rn of the femoral neck is intact. The hip joint is of normal width without significant sclerosis or bony hypertrophy. The acetabulum is grossly intact. CONCLUSION: Unremarkable examination of the left hip. Devaughn Birch MD on May 17, 2017 at 9:26 Board Certified Radiologist. This report was verified electronically.
[2017-05-17] MEDS ORDERED: ACETAMINOPHEN 325 MG TAB PO PRN (10:15)
[2017-05-17] MEDS ORDERED: ONDANSETRON HCL 4 MG/2 ML VIAL IV PRN (10:15)
[2017-05-17 10:45] LABS: BLOOD, URINE SMALL (NEG); COMMENT (UR) CULTURE INDICATED; CULTURE IF INDICATED CULTURE INDICATED; GLUCOSE,URINE NEG (NEG); KETONE, URINE 40 mg/dL (NEG); PH, URINE 6.5 (5.0-8.5); SQUAMOUS EPITHELIAL CELL URINE 1 /hpf (0-5); URINE COLOR YELLOW (YELLW/STRAW)
[2017-05-17 10:46] LABS: BACTERIA, URINE MANY /hpf; NITRITE,URINE POS (NEG)
[2017-05-17 11:32] VITALS: BP 153/68; PULSE 75; RESP 20; TEMP 97.5; O2SAT 97
[2017-05-17] MEDS: ALPRAZolam 1 MG TAB PO PRN ×2 (11:45→22:02)
[2017-05-17] MEDS ORDERED: QUET5TAB PO (15:26)
[2017-05-17 16:02] VITALS: BP 135/63; PULSE 82; RESP 16; TEMP 98
--- NOTE | 2017-05-17 16:07 | HHI.HP ---
HPI Service [facility] Hospitalists Primary Care Physician Dr. Zac Rosenbaum Admission Diagnosis Syncope, gait instability Chief Complaint: Syncope Travel History International Travel<30 Days: No Contact w/Intl Traveler <30 Da: No Traveled to Known Affected Are: No History of Present Illness Ms. Espinosa is a pleasant 81 y/o WF with HTN, hyperlipidemia, depression, and sciatica who presented to the ED at [facility] on 05/17/17 after a syncopal episode. Pt reports that she has been having issues with increased back pain related to her sciatica since last , 05/13/17, when she woke up in severe pain and couldn't get out of bed. She states that she was using a heating pad as needed for the back pain and was able to ambulate some with the use of her walker. She had also reported that yesterday she had increased urinary frequency but denies any dysuria. She states that she was having urinary incontinence yesterday. Denies any fevers/chills. This morning she woke up around 5:30AM and was ambulating to the kitchen with her walker and then developed some lightheadedness and had syncope. She states that she thinks she was passed out for about 15 minutes. She had hit her head on the tile floor and had noted blood on the floor. She was able to get to the phone and called her neighbor around 6:30AM who brought her to the ED. Pts labs at admission were unrevealing. UA was abnormal indicating a possible UTI. Pelvic Xray was negative for any acute fractures. Cervical spine CT was negative for fracture, only noting mild degenerative changes. She reports that she has had issues with palpitations over the last several months since her son in August 2016. She did not specifically have any palpitations this morning prior to the syncope. She had an outpt workup with Cardiology including a 7 day event monitor in 01/2017 which noted sinus rhythm, sinus octavia, and sinus tachy. She had a negative Lexiscan in November 2016. Pt reports that she has not been eating well and is having issues with depression since the of her son last year. Pt denies any chest pain, SOB, diaphoresis, nausea/vomiting, abdominal pain. She has lost almost 20lbs since July 2016. Review of Systems Constitutional: COMPLAINS OF: Weight loss, Change in appetite, DENIES: Diaphoretic episodes, Fever, Chills Eyes: DENIES: Blurred vision, Vision loss Ears, nose, mouth, throat: DENIES: Hearing loss Respiratory: DENIES: Cough, Shortness of breath Cardiovascular: COMPLAINS OF: Palpitations, DENIES: Chest pain, Dyspnea on Exertion, Lower Extremity Edema Gastrointestinal: DENIES: Abdominal pain, Diarrhea, Nausea, Vomiting Genitourinary: COMPLAINS OF: Urinary frequency, Urinary incontinence, DENIES: Urgency, Hematuria, Dysuria Musculoskeletal: DENIES: Joint pain Integumentary: DENIES: Rash Hematologic/lymphatic: DENIES: Bruising Neurologic: DENIES: Headache Psychiatric: DENIES: Confusion Past Family Social History Past Medical History HTN Hyperlipidemia Hx of breast cancer GERD Depression/Anxiety IBS MVP Osteoarthritis Past Surgical History WESLEY in 1981 Tonsillectomy Bilateral mastectomies in 1984 and subsequent bilateral breast reconstruction and implant prosthesis bilaterally EGD/colonoscopy Reported Medications Quetiapine 50 Mg PO HS Alprazolam 1 Mg PO Q6H PRN Rosuvastatin 5 Mg PO DAILY Timolol Opth Drops 0.5 % Soln 1 Drop EACH EYE BID Lisinopril 20 Mg PO DAILY Allergies: Coded Allergies: Keflex (Verified Allergy, Mild, RASH, 05/17/17) Codeine (Verified Adverse Reaction, Mild, NAUSEA, 05/17/17) Family History Father at 66 y/o after some unspecified heart surgery Mother at 69 y/o with some heart related issues Brother at 48 y/o from AMI Social History Pt denies any alcohol, tobacco or illicit drug use Pt is retired, she is a . Pt lives alone. Pts son recently was killed in a road rage incident in 08/2016 Physical Exam Vital Signs Vital Signs Date Time Temp Pulse Resp B/P Pulse Ox O2 Delivery O2 Flow Rate FiO2 05/17/17 11:32 97.5 75 20 153/68 97 05/17/17 07:40 18 99 Room Air 05/17/17 07:40 90 18 122/67 99 05/17/17 07:37 98.3 93 20 122/67 98 Physical Exam GENERAL: This is a well-nourished, well-developed patient, in no apparent distress. HEENT: Atraumatic. Normocephalic. No temporal or scalp tenderness. No scleral icterus. Airway patent. NECK: Trachea midline, supple, nontender. CARDIO: Regular. RESP: CTA bilaterally. No wheezes, rales, or rhonchi. ABD: +BS, soft, non-tender, nondistended. EXT: Extremities without clubbing, cyanosis, or edema. NEURO: Awake and alert. LLE weakness and decreased dorsiflexion compared to RLE. Normal speech. Laboratory Laboratory Tests Test 05/17/17 05/17/17 08:25 10:17 White Blood Count 9.4 Red Blood Count 4.40 Hemoglobin 12.6 Hematocrit 37.2 Mean Corpuscular Volume 84.5 Mean Corpuscular Hemoglobin 28.6 Mean Corpuscular Hemoglobin 33.8 Concent Red Cell Distribution Width 12.9 Platelet Count 157 Mean Platelet Volume 8.4 Neutrophils (%) (Auto) 84.9 Lymphocytes (%) (Auto) 7.3 Monocytes (%) (Auto) 7.4 Eosinophils (%) (Auto) 0.2 Basophils (%) (Auto) 0.2 Neutrophils # (Auto) 8.0 Lymphocytes # (Auto) 0.7 Monocytes # (Auto) 0.7 Eosinophils # (Auto) 0.0 Basophils # (Auto) 0.0 CBC Comment DIFF FINAL Differential Comment Prothrombin Time 10.5 Prothromb Time International 1.0 Ratio Activated Partial 21.5 Thromboplast Time Sodium Level 134 Potassium Level 4.0 Chloride Level 101 Carbon Dioxide Level 25.5 Anion Gap 8 Blood Urea Nitrogen 11 Creatinine 0.65 Estimat Glomerular Filtration 88 Rate Random Glucose 108 Calcium Level 9.1 Magnesium Level 2.2 Total Bilirubin 0.8 Aspartate Amino Transf 20 (AST/SGOT) Alanine Aminotransferase 24 (ALT/SGPT) Alkaline Phosphatase 77 Total Creatine Kinase 70 Troponin I LESS THAN 0.02 B-Type Natriuretic Peptide 35 Total Protein 6.9 Albumin 2.7 Urine Color YELLOW Urine Turbidity HAZY Urine pH 6.5 Urine Specific [place] 1.012 Urine Protein 30 Urine Glucose (UA) NEG Urine Ketones 40 Urine Occult Blood SMALL Urine Nitrite POS Urine Bilirubin NEG Urine Urobilinogen LESS THAN 2.0 Urine Leukocyte Esterase LARGE Urine RBC 22 Urine WBC Urine WBC Clumps FEW Urine Squamous Epithelial 1 Cells Urine Bacteria MANY Microscopic Urinalysis Comment CULTURE INDICATED Date/Time Procedure Status Source Growth 05/17/17 10:17 Urine Culture Received Urine Random Urine Pending Result Diagram: 05/17/1782405/17/17 08 Imaging Last Impressions Head CT 05/17/17 0757 Signed Impressions: Service Date/Time: Wednesday, May 17, 2017 08:28 - CONCLUSION: Negative for acute process. Pierre Garnett MD FACR Chest X-Ray 05/17/17 0757 Signed Impressions: Service Date/Time: Wednesday, May 17, 2017 09:02 - CONCLUSION: No acute cardiopulmonary abnormality is identified. Devaughn Robert MD Cervical Spine CT 05/17/17 0757 Signed Impressions: Service Date/Time: Wednesday, May 17, 2017 08:31 - CONCLUSION: Negative for fracture. Mild degenerative changes. Pierre Garnett MD FACR Hip and Pelvis X-Ray 05/17/17 0000 Signed Impressions: Service Date/Time: Wednesday, May 17, 2017 08:57 - CONCLUSION: Unremarkable examination of the left hip. Devaughn Birch MD Septic Shock Reassessment Heart: Regular rate and rhythm Lungs: Clear Skin: Warm Peripheral Pulses: Bounding Right Radial Bounding Left Radial Bounding Right Popliteal Bounding Left Popliteal Bounding Right Dorsalis Pedis Bounding Left Dorsalis Pedis Bounding Right Posterior Tibial Bounding Left Posterior Tibial Assessment and Plan Problem List: (1) Syncope and collapse Status: Acute Plan: - Pt is an 81 y/o female with HTN, hyperlipidemia, sciatica and depression who was admitted after a syncopal episode. - She has been having increased issues with sciatica and back pain radiating into the left leg for the previous 4 days prior to admission. - Pt had also noted urinary frequency and incontinence one day prior to admission and UA was abnormal at admission. - Pt has not been eating well and has been having issues with weight loss and depression since the of her son, 9 months ago. - The exact cause for the pts syncope is unclear. ?Vasovagal related to back pain vs. orthostatic hypotension vs. other. - Telemetry - Orthostatic vital signs - Check MRI lumbar spine as pt with some noted weakness in the LLE on examination - PT evaluation - Give some IVF today - Encourage oral intake and add Boost with each meal - Start Levaquin 500mg po daily for UTI - Resume home meds, hold Lisinopril until tomorrow and hold if systolic BP is less than 120 - Supportive care - Pt will likely need SNF placement at the end of this hospitalization - DVT prophylaxis with SCDs (2) Scalp laceration Status: Acute Plan: - Scalp laceration repaired in the ED with kaci (3) HTN (hypertension), benign Status: Chronic Plan: - Cont. home med with parameters, see above. (4) Hyperlipidemia Status: Chronic (5) Anxiety Status: Chronic Plan: - Cont. home meds (6) Depression Status: Chronic Plan: - Cont. home meds - Pt is supposed to see Dr. Mcbride as an outpt this week. Assessment and Plan Patient examined. Assessment and plan formulated with Louise Zepeda PA-C. I agree with the above c/o left buttock pain with lle radiculopathy since last week. difficulty ambulation and getting out of bed. had syncope and presented here. uti noted. abx. PT eval. L spine pending. will need snf. Problem Qualifiers (1) Scalp laceration: Qualified Code: S01.01XA - Scalp laceration, initial encounter Louise Zepeda May 17, 2017 16:07 Horacio Mathis MD May 17, 2017 17:17
[2017-05-17] MEDS: DOCUSATE SODIUM 100 MG CAP PO SCH (18:26)
[2017-05-17] MEDS: SODIUM CHLOR 0.9% 1000 ML INJ 1,000 ML IV SCH (18:26)
[2017-05-17] MEDS: ACETAMINOPHEN/HYDROcodone 325 MG/5 MG TAB PO PRN (18:27)
[2017-05-17] MEDS ORDERED: LEVOFLOXACIN 500 MG TAB PO ONE (18:30)
--- NOTE | 2017-05-17 19:23 | RADRPT ---
EXAM DATE/TIME: 05/17/2017 18:42 [place] COMPARISON: No previous studies available for comparison. INDICATIONS : Severe lower back pain. MEDICAL HISTORY : Carcinoma, breast. Hypertension. SURGICAL HISTORY : Mastectomy, bilateral. Hysterectomy. Colon resection. ENCOUNTER: Initial ACUITY: 1 day PAIN SCORE: 9/10 LOCATION: Bilateral lower back. TECHNIQUE: Multiplanar multisequence MRI of the lumbar spine was performed without contrast. FINDINGS: The most caudal appearing lumbar vertebra is numbered as L5. VERTEBRAE: Homogeneous signal. Normal alignment. There is a mild scoliosis. DISCS: Degenerative disc change is present greatest at the L4-5 and L5-S1 levels with disc space narrowing, desiccation and mild hypertrophic change. There are anterior extradural defects noted on the sagittal images. 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 CONUS: Normal level and configuration. T12-L1: A mild disc bulge with minimal flattening of the anterior thecal sac and no focal protrusion. The ru ral foramina are patent bilaterally. L1-L2: The thecal sac has a normal diameter. No evidence of disc bulge or protrusion. The neural foramina are patent bilaterally. L2-L3: The thecal sac has a normal diameter. No evidence of disc bulge or protrusion. The neural foramina are patent bilaterally. L3-L4: The thecal sac has a normal diameter. No evidence of disc bulge or protrusion. The neural foramina are patent bilaterally. L4-L5: There is a mild annular disc bulge with superimposed small broad-based posterior central protrusion m easuring approximately 1.2 cm across the base and 2 mm in AP diameter with mild mass effect on the an terior thecal sac. There are mild degenerative change about the facet joints. The neural foramina are patent bilaterally. L5-S1: There is a moderate posterior central protrusion measuring approximately 1.3 cm across the base and 5 -6 mm in AP diameter with no mass effect on the thecal sac or traversing S1 nerve roots. There are mi ld degenerative changes involving the facet joints. The neuroforamina are patent. CONCLUSION: 1. Moderate size posterior central protrusion at the L5-S1 level. 2. Mild annular disc bulge with superimposed small broad-based posterior central protrusion at the L4 -5 level with mild mass effect on the anterior thecal sac. 3. Minimal disc bulge at the T12-L1 level. 4. Degenerative disc changes greatest at the L4-5 and L5-S1 levels. Andrea Lafleur MD on May 17, 2017 at 19:17 Board Certified Radiologist. This report was verified electronically.
[2017-05-17] MEDS: TIMOLOL MALEATE 0.5% OPHT SOLN 5 ML BTL EACH EYE SCH (20:16)
[2017-05-17 23:29] VITALS: PULSE 74
[2017-05-17 23:48] VITALS: BP 104/57; PULSE 83; RESP 18; TEMP 98.7; O2SAT 96
[2017-05-18] VITALS (8 sets, daily range): BP systolic 108–144; BP diastolic 59–65; PULSE 63–86; RESP 18–24; TEMP 97.6–98.5; O2SAT 93–96
[2017-05-18] MEDS: ACETAMINOPHEN/HYDROcodone 325 MG/5 MG TAB PO PRN ×3 (03:12→15:10)
[2017-05-18] MEDS: DOCUSATE SODIUM 100 MG CAP PO SCH ×2 (06:20→18:35)
[2017-05-18] MEDS: SODIUM CHLOR 0.9% 1000 ML INJ 1,000 ML IV SCH (06:35)
[2017-05-18 07:29] LABS: AUTOMATED NEUTROPHIL # 4.8 TH/MM3 (1.8-7.7); BASOPHIL % 0.5 % (0.0-2.0); EOSINOPHIL % 0.4 % (0.0-4.0); HEMO FLAGS DIFF FINAL; LYMPH % 17.8 % (9.0-44.0); LYMPHOCYTE # 1.2 TH/MM3 (1.0-4.8); MEAN CORPUSCULAR HEMOGLOBIN 28.5 PG (27.0-34.0); MEAN CORPUSCULAR HGB CONC 33.9 % (32.0-36.0); MONO % 8.3 % (0.0-8.0); PLATELET COUNT 157 TH/MM3 (150-450); RED BLOOD COUNT 4.05 MIL/MM3 (4.00-5.30); WHITE BLOOD COUNT 6.6 TH/MM3 (4.0-11.0)
--- NOTE | 2017-05-18 07:41 | EKG ---
Date Performed: 05/17/2017 Time Performed: 08:05:50 PTAGE: 81 years EKG: Sinus rhythm WITH OCCASIONAL SUPRAVENTRICULAR PREMATURE COMPLEXES MODERATE T-WAVE ABNORMALITY, CONSIDER ANTERIOR ISCHEMIA ABNORMAL ECG INTERPRETATION BASED ON A DEFAULT AGE OF 40 YEARS PREVIOUS TRACING : 11/23/2016 21.05 DOCTOR: Isaura Jeffers Interpretating Date/Time 05/18/2017 07:40:36
[2017-05-18 07:54] LABS: BICARBONATE 26.3 MEQ/L (21.0-32.0); MAGNESIUM 2.1 MG/DL (1.5-2.5); POTASSIUM 3.9 MEQ/L (3.5-5.1)
[2017-05-18] MEDS: LEVOFLOXACIN 500 MG TAB PO SCH (08:07)
[2017-05-18] MEDS: LISINOPRIL 20 MG TAB PO SCH (08:07)
[2017-05-18] MEDS: ATORVASTATIN 10 MG TAB PO SCH (08:08)
[2017-05-18] MEDS: TIMOLOL MALEATE 0.5% OPHT SOLN 5 ML BTL EACH EYE SCH ×2 (08:08→20:02)
--- NOTE | 2017-05-18 08:36 | HHI.PR ---
Subjective Remarks Pt still having increased back pain but does get some symptomatic improvement with the [place] She is unable to get out of bed Pt had a very small BM yesterday Still not eating much Objective Vitals Vital Signs Date Time Temp Pulse Resp B/P Pulse Ox O2 Delivery O2 Flow Rate FiO2 05/18/17 07:57 98.3 76 18 131/63 96 05/18/17 06:11 98.4 83 18 117/62 96 05/17/17 23:48 98.7 83 18 104/57 96 05/17/17 23:29 74 05/17/17 16:02 98.0 82 16 135/63 05/17/17 11:32 97.5 75 20 153/68 97 Result Diagram: 05/18/17 0658 05/18/17 0658 Other Results Laboratory Tests Test 05/17/17 05/17/17 05/18/17 08:25 10:17 06:58 White Blood Count 9.4 TH/MM3 6.6 TH/MM3 Red Blood Count 4.40 MIL/MM3 4.05 MIL/MM3 Hemoglobin 12.6 GM/DL 11.5 GM/DL Hematocrit 37.2 % 34.0 % Mean Corpuscular Volume 84.5 FL 84.0 FL Mean Corpuscular Hemoglobin 28.6 PG 28.5 PG Mean Corpuscular Hemoglobin 33.8 % 33.9 % Concent Red Cell Distribution Width 12.9 % 13.0 % Platelet Count 157 TH/MM3 157 TH/MM3 Mean Platelet Volume 8.4 FL 8.2 FL Neutrophils (%) (Auto) 84.9 % 73.0 % Lymphocytes (%) (Auto) 7.3 % 17.8 % Monocytes (%) (Auto) 7.4 % 8.3 % Eosinophils (%) (Auto) 0.2 % 0.4 % Basophils (%) (Auto) 0.2 % 0.5 % Neutrophils # (Auto) 8.0 TH/MM3 4.8 TH/MM3 Lymphocytes # (Auto) 0.7 TH/MM3 1.2 TH/MM3 Monocytes # (Auto) 0.7 TH/MM3 0.5 TH/MM3 Eosinophils # (Auto) 0.0 TH/MM3 0.0 TH/MM3 Basophils # (Auto) 0.0 TH/MM3 0.0 TH/MM3 CBC Comment DIFF FINAL DIFF FINAL Differential Comment Prothrombin Time 10.5 SEC Prothromb Time International 1.0 RATIO Ratio Activated Partial 21.5 SEC Thromboplast Time Sodium Level 134 MEQ/L 138 MEQ/L Potassium Level 4.0 MEQ/L 3.9 MEQ/L Chloride Level 101 MEQ/L 105 MEQ/L Carbon Dioxide Level 25.5 MEQ/L 26.3 MEQ/L Anion Gap 8 MEQ/L 7 MEQ/L Blood Urea Nitrogen 11 MG/DL 12 MG/DL Creatinine 0.65 MG/DL 0.69 MG/DL Estimat Glomerular Filtration 88 ML/MIN 82 ML/MIN Rate Random Glucose 108 MG/DL 86 MG/DL Calcium Level 9.1 MG/DL 8.9 MG/DL Magnesium Level 2.2 MG/DL 2.1 MG/DL Total Bilirubin 0.8 MG/DL Aspartate Amino Transf 20 U/L (AST/SGOT) Alanine Aminotransferase 24 U/L (ALT/SGPT) Alkaline Phosphatase 77 U/L Total Creatine Kinase 70 U/L Troponin I LESS THAN 0.02 NG/ML B-Type Natriuretic Peptide 35 PG/ML Total Protein 6.9 GM/DL Albumin 2.7 GM/DL Urine Color YELLOW Urine Turbidity HAZY Urine pH 6.5 Urine Specific [place] 1.012 Urine Protein 30 mg/dL Urine Glucose (UA) NEG mg/dL Urine Ketones 40 mg/dL Urine Occult Blood SMALL Urine Nitrite POS Urine Bilirubin NEG Urine Urobilinogen LESS THAN 2.0 MG/DL Urine Leukocyte Esterase LARGE Urine RBC 22 /hpf Urine WBC /hpf Urine WBC Clumps FEW Urine Squamous Epithelial 1 /hpf Cells Urine Bacteria MANY /hpf Microscopic Urinalysis Comment CULTURE INDICATED Imaging Last Impressions Head CT 05/17/17 075 Signed Impressions: Service Date/Time: Wednesday, May 17, 2017 08:28 - CONCLUSION: Negative for acute process. Pierre Garnett MD FACR Chest X-Ray 05/17/17 075 Signed Impressions: Service Date/Time: Wednesday, May 17, 2017 09:02 - CONCLUSION: No acute cardiopulmonary abnormality is identified. Devaughn Robert MD Cervical Spine CT 05/17/17 075 Signed Impressions: Service Date/Time: Wednesday, May 17, 2017 08:31 - CONCLUSION: Negative for fracture. Mild degenerative changes. Pierre Garnett MD FACR Lumbar Spine MRI 05/17/17 0000 Signed Impressions: Service Date/Time: Wednesday, May 17, 2017 18:42 - CONCLUSION: 1. Moderate size posterior central protrusion at the L5-S1 level. 2. Mild annular disc bulge with superimposed small broad-based posterior central protrusion at the L4-5 level with mild mass effect on the anterior thecal sac. 3. Minimal disc bulge at the T12-L1 level. 4. Degenerative disc changes greatest at the L4-5 and L5-S1 levels. Andrea Lafleur MD Hip and Pelvis X-Ray 05/17/17 0000 Signed Impressions: Service Date/Time: Wednesday, May 17, 2017 08:57 - CONCLUSION: Unremarkable examination of the left hip. Devaughn Birch MD Objective Remarks General: NAD, AAOx3 Chest: CTA Cardiac: Regular Abd: +BS, soft ND/NT Ext: No edema, LLE weakness and decreased dorsiflexion compared to RLE A/P Problem List: (1) Syncope and collapse Status: Acute Plan: - Pt is an 81 y/o female with HTN, hyperlipidemia, sciatica and depression who was admitted after a syncopal episode. - She has been having increased issues with sciatica and back pain radiating into the left leg for the previous 4 days prior to admission. - Pt had also noted urinary frequency and incontinence one day prior to admission and UA was abnormal at admission. - Pt has not been eating well and has been having issues with weight loss and depression since the of her son, 9 months ago. - The exact cause for the pts syncope is unclear. ?Vasovagal related to back pain vs. orthostatic hypotension vs. other. - Orthostatic vital signs have not been performed yet - MRI lumbar spine --> Moderate size posterior central protrusion at the L5-S1 level. Mild annular disc bulge with superimposed small broad-based posterior central protrusion at the L4-5 level with mild mass effect on the anterior thecal sac. Minimal disc bulge at the T12-L1 level. Degenerative disc changes greatest at the L4-5 and L5-S1 levels. - PT evaluation today - Consult Neurosurgery, ?if JINA may give the pt symptomatic relief. She states that she had similar issues with her back many years ago and received an injection with improvement. - Encourage oral intake and add Boost with each meal - Cont. Levaquin 500mg po daily for UTI, await urine culture results - Telemetry reviewed, pt had one brief episode of tachycardia last night around 0100AM but has been NSR since then - Supportive care - Pt will likely need SNF placement at the end of this hospitalization - DVT prophylaxis with SCDs (2) Scalp laceration Status: Acute Plan: - Scalp laceration repaired in the ED with 2 kaci (3) HTN (hypertension), benign Status: Chronic Plan: - Cont. home med with parameters (4) Hyperlipidemia Status: Chronic (5) Anxiety Status: Chronic Plan: - Cont. home meds (6) Depression Status: Chronic Plan: - Cont. home meds - Pt is supposed to see Dr. Mcbride as an outpt this week. Assessment and Plan Patient examined. Assessment and plan formulated with Louise Zepeda PA-C. I agree with the above. uti. left leg weakness and c/o pain left buttock mri L spine showed disc bulgine L5/S!. Pt asking for epidural. will get nsg opinion..then will need snf. discussed with pcp. Problem Qualifiers (1) Scalp laceration: Qualified Code: S01.01XA - Scalp laceration, initial encounter Louise Zepeda May 18, 2017 08:36 Horacio Mathis MD May 18, 2017 13:12
[2017-05-18] MEDS: ALPRAZolam 1 MG TAB PO PRN ×2 (14:26→21:57)
[2017-05-18] MEDS: MAGNESIUM HYDROXIDE SUSP 30 ML CUP PO PRN (15:09)
--- NOTE | 2017-05-18 19:51 | MB ---
cc: ALANA CALHOUN D.O., ROHIT K. M.D. DATE OF CONSULTATION 05/18/2017 REASON FOR CONSULTATION Lumbar disk protrusion. HISTORY OF THE PRESENT ILLNESS An 81-year-old female with a presentation to the emergency room yesterday morning after a syncopal episode. She also complains of left buttock pain that radiates into the hip and posterior thigh. She denies any numbness or paresthesias or any right lower extremity symptoms. She relates that she had similar symptoms 20 years ago and had some shots in her back and subsequently the symptoms resolved. Denies any incontinence. Workup included a left hip x-ray which did not reveal any fractures. She had a head CT scan and a cervical spine CT scan which are negative. Lumbar spine MRI scan reveals mild disk protrusions at L4-5 and L5-S1 levels along with some degenerate changes with overall mild stenosis. PAST MEDICAL HISTORY 1. Hypertension. 2. Anxiety. 3. Depression. 4. Hyperlipidemia. 5. Breast cancer. 6. Gastroesophageal reflux. 7. Irritable bowel syndrome. 8. Mitral valve prolapse. 9. Tonsillectomy. 10. Bilateral mastectomies with reconstruction. 11. Hysterectomy. MEDICATIONS 1. Alprazolam 1 mg q.6 h p.r.n. 2. Lisinopril 20 mg daily. 3. Quetiapine 50 mg q.h.s. 4. Rosuvastatin 5 milligrams daily. 5. Timolol 0.5% eye drops twice a day. ALLERGIES CODEINE AND KEFLEX. SOCIAL HISTORY She is a . Drinks alcohol on occasionally basis. Denies smoking cigarettes. LABORATORY DATA White blood cell count 6.6, hemoglobin 11.5, platelet count 157. Sodium 138, potassium 3.9, BUN 12, creatinine 0.69, glucose 86. Urinalysis is positive for a large leukocyte esterase, many bacteria, 22 rbcs, positive nitrites and she is on Levaquin for a UTI. PHYSICAL EXAMINATION VITAL SIGNS: Temperature 97.6, pulse is 86, respiratory 24, blood pressure 144/65, oxygen saturation 96% on room air. HEAD: Normocephalic, atraumatic. NECK: Supple. CHEST: Clear bilaterally. HEART: Regular rate and rhythm, normal S1-S2. ABDOMEN: Soft, nontender. EXTREMITIES: No cyanosis or edema. NEUROLOGIC: She is awake and alert. Cranial nerves intact. Motor strength in the upper extremities 5/5. The right lower extremity is 5/5. Left lower extremity more proximally she has give-way weakness from pain but distally she has 5/5 strength. Appreciates light touch sensation bilaterally in upper and lower extremities. Negative Babinski. Speech is fluent. She complains of pain in the left buttock and hip area with movement of the left hip. IMPRESSION 1. Left paraspinal low back pain with radiation to the buttock and hip and posterior thigh. She has mild L4-5 and L5-S1 disk protrusions with overall mild stenosis. 2. Possible left hip sprain. She says her pain is more localized to the left hip area, especially with movement. PLAN The patient does not require any neurosurgical intervention. I would recommend continued pain management as well as physical therapy. A course of lumbar epidural steroid injections can also be undertaken either by special procedures radiology or pain management. MD NICK Jean-Baptiste/MARYLIN /3:19 PM /7:41 PM
[2017-05-19] VITALS (7 sets, daily range): BP systolic 101–144; BP diastolic 60–75; PULSE 63–89; RESP 16–18; TEMP 96.6–99.1; O2SAT 92–96
[2017-05-19] MEDS: DOCUSATE SODIUM 100 MG CAP PO SCH ×2 (06:08→17:48)
--- NOTE | 2017-05-19 08:36 | HHI.PR ---
Subjective Remarks Pt reports that she slept well last night. She has not had a BM yet. She is still having the same pain in the left lower back/buttock and weakness in the LLE Objective Vitals Vital Signs Date Time Temp Pulse Resp B/P Pulse Ox O2 Delivery O2 Flow Rate FiO2 05/19/17 08:11 98.8 83 17 133/66 95 05/19/17 04:30 98.0 76 18 116/66 92 05/18/17 23:36 98.5 77 108/59 95 05/18/17 20:50 77 05/18/17 20:16 98.2 86 18 119/61 93 05/18/17 16:11 84 05/18/17 15:01 97.6 86 24 144/65 96 05/18/17 12:27 63 05/18/17 05/18/17 05/19/17 15:00 23:00 07:00 # Voids 4 3 Result Diagram: 05/18/17 0658 05/18/17 0658 Other Results Laboratory Tests Test 05/17/17 05/18/17 10:17 06:58 Urine Color YELLOW Urine Turbidity HAZY Urine pH 6.5 Urine Specific [place] 1.012 Urine Protein 30 mg/dL Urine Glucose (UA) NEG mg/dL Urine Ketones 40 mg/dL Urine Occult Blood SMALL Urine Nitrite POS Urine Bilirubin NEG Urine Urobilinogen LESS THAN 2.0 MG/DL Urine Leukocyte Esterase LARGE Urine RBC 22 /hpf Urine WBC /hpf Urine WBC Clumps FEW Urine Squamous Epithelial 1 /hpf Cells Urine Bacteria MANY /hpf Microscopic Urinalysis Comment CULTURE INDICATED White Blood Count 6.6 TH/MM3 Red Blood Count 4.05 MIL/MM3 Hemoglobin 11.5 GM/DL Hematocrit 34.0 % Mean Corpuscular Volume 84.0 FL Mean Corpuscular Hemoglobin 28.5 PG Mean Corpuscular Hemoglobin 33.9 % Concent Red Cell Distribution Width 13.0 % Platelet Count 157 TH/MM3 Mean Platelet Volume 8.2 FL Neutrophils (%) (Auto) 73.0 % Lymphocytes (%) (Auto) 17.8 % Monocytes (%) (Auto) 8.3 % Eosinophils (%) (Auto) 0.4 % Basophils (%) (Auto) 0.5 % Neutrophils # (Auto) 4.8 TH/MM3 Lymphocytes # (Auto) 1.2 TH/MM3 Monocytes # (Auto) 0.5 TH/MM3 Eosinophils # (Auto) 0.0 TH/MM3 Basophils # (Auto) 0.0 TH/MM3 CBC Comment DIFF FINAL Differential Comment Sodium Level 138 MEQ/L Potassium Level 3.9 MEQ/L Chloride Level 105 MEQ/L Carbon Dioxide Level 26.3 MEQ/L Anion Gap 7 MEQ/L Blood Urea Nitrogen 12 MG/DL Creatinine 0.69 MG/DL Estimat Glomerular Filtration 82 ML/MIN Rate Random Glucose 86 MG/DL Calcium Level 8.9 MG/DL Magnesium Level 2.1 MG/DL Imaging Last Impressions Head CT 05/17/17756 Signed Impressions: Service Date/Time: Wednesday, May 17, 2017 08:28 - CONCLUSION: Negative for acute process. Pierre Garnett MD FACR Chest X-Ray 05/17/17756 Signed Impressions: Service Date/Time: Wednesday, May 17, 2017 09:02 - CONCLUSION: No acute cardiopulmonary abnormality is identified. Devaughn Robert MD Cervical Spine CT 05/17/17756 Signed Impressions: Service Date/Time: Wednesday, May 17, 2017 08:31 - CONCLUSION: Negative for fracture. Mild degenerative changes. Pierre Garnett MD FACR Lumbar Spine MRI 05/17/17 0000 Signed Impressions: Service Date/Time: Wednesday, May 17, 2017 18:42 - CONCLUSION: 1. Moderate size posterior central protrusion at the L5-S1 level. 2. Mild annular disc bulge with superimposed small broad-based posterior central protrusion at the L4-5 level with mild mass effect on the anterior thecal sac. 3. Minimal disc bulge at the T12-L1 level. 4. Degenerative disc changes greatest at the L4-5 and L5-S1 levels. Andrea Lafleur MD Hip and Pelvis X-Ray 05/17/17 0000 Signed Impressions: Service Date/Time: Wednesday, May 17, 2017 08:57 - CONCLUSION: Unremarkable examination of the left hip. Devaughn Birch MD Objective Remarks General: NAD, AAOx3 Chest: CTA Cardiac: Regular Abd: +BS, soft ND/NT Ext: No edema, LLE weakness unable to lift off the bed unassisted and dorsiflexion improving A/P Problem List: (1) Syncope and collapse Status: Acute Plan: - Pt is an 81 y/o female with HTN, hyperlipidemia, sciatica and depression who was admitted after a syncopal episode. - She has been having increased issues with sciatica and back pain radiating into the left leg for the previous 4 days prior to admission. - Pt had also noted urinary frequency and incontinence one day prior to admission and UA was abnormal at admission. - Pt has not been eating well and has been having issues with weight loss and depression since the of her son, 9 months ago. - The exact cause for the pts syncope is unclear. ?Vasovagal related to back pain vs. orthostatic hypotension vs. other. - MRI lumbar spine --> Moderate size posterior central protrusion at the L5-S1 level. Mild annular disc bulge with superimposed small broad-based posterior central protrusion at the L4-5 level with mild mass effect on the anterior thecal sac. Minimal disc bulge at the T12-L1 level. Degenerative disc changes greatest at the L4-5 and L5-S1 levels. - Appreciate Neurosurgery consultation, no surgical intervention felt to be necessary. They recommended continued PT and that the pt may benefit from JINA - Consult IR for possible JINA - Encourage oral intake and add Boost with each meal - Cont. Levaquin 500mg po daily for UTI, urine culture growing Klebsiella, sensitive to Fluoroquinolones with NIKOLAS <1 - Telemetry reviewed, pt had one brief episode of tachycardia last night around 0100AM but has been NSR since then - Supportive care - SNF placement at the end of this hospitalization - DVT prophylaxis with SCDs (2) Scalp laceration Status: Acute Plan: - Scalp laceration repaired in the ED with 2 kaci (3) HTN (hypertension), benign Status: Chronic Plan: - Cont. home med with parameters (4) Hyperlipidemia Status: Chronic (5) Anxiety Status: Chronic Plan: - Cont. home meds (6) Depression Status: Chronic Plan: - Cont. home meds - Pt is supposed to see Dr. Mcbride as an outpt this week. Assessment and Plan Patient examined. Assessment and plan formulated with Louise Zepeda PA-C. I agree with the above. left leg strength seems a little better...but still alot of left buttock pain. CT guided epidural consult with IR..then d/c to [facility] in AM. abx for uti Problem Qualifiers (1) Scalp laceration: Qualified Code: S01.01XA - Scalp laceration, initial encounter Louise Zepeda May 19, 2017 08:36 Horacio Mathis MD May 19, 2017 13:12
[2017-05-19] MEDS: TIMOLOL MALEATE 0.5% OPHT SOLN 5 ML BTL EACH EYE SCH ×2 (09:52→21:31)
[2017-05-19] MEDS: LEVOFLOXACIN 500 MG TAB PO SCH (09:52)
[2017-05-19] MEDS: ACETAMINOPHEN/HYDROcodone 325 MG/5 MG TAB PO PRN ×3 (09:53→21:31)
[2017-05-19] MEDS: LISINOPRIL 20 MG TAB PO SCH (09:53)
[2017-05-19] MEDS: ATORVASTATIN 10 MG TAB PO SCH (09:54)
[2017-05-19] MEDS ORDERED: SODIUM CHLORIDE 0.9% INJ 10 ML ONE (15:58)
[2017-05-19] MEDS ORDERED: TRIAMCINOLONE ACETONIDE 40 MG/ML VIAL ONE (15:59)
[2017-05-19] MEDS ORDERED: BUPIVACAINE HCL PF 0.75% 30 ML VIAL ONE (15:59)
--- NOTE | 2017-05-19 16:29 | PD.RAD ---
Post Procedure Progress Note Pre Procedure Diagnosis: (1) Lumbar radicular pain Post Procedure Diagnosis: (1) Lumbar radicular pain Procedure Date: May 19, 2017 Supervising Radiologist: Bryan Sanchez Proceduralist/Assist: Viktoriya Dumont, RT(R), Chuy Norman, RT(R) Anesthesia: Local Plan of Activity Patient to Unit: Nursing Unit Patient Condition: Good Additional Comments: left L4-5 Epidural injection See PACS Report for procedural detail/treatment Bryan Sanchez MD May 19, 2017 16:29
[2017-05-19] MEDS ORDERED: IOHEXOL 300 MG/ML 50 ML BTL (for RAD DIAG) ONE (16:35)
--- NOTE | 2017-05-19 16:58 | RADRPT ---
EXAM DATE/TIME: 05/19/2017 16:05 [facility] COMPARISON: No previous studies available for comparison. 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 MEDICAL HISTORY : HTN Hyperlipidemia HX of breast cancer GERD Depression IBS MVP Osteoarthritis SURGICAL HISTORY : [facility] in 1981 Tonsillectomy Bilateral mastectomies in 1984 Bilateral breast reconstruction EGD/colonscopy ENCOUNTER: Initial ACUITY: 3 days PAIN SCORE: 10/10 LOCATION: Left low back FLUORO TIME: 0.4 minutes IMAGE SERIES: CONTRAST: 3 cc Omnipaque (iohexol) 300 ACCESS LEVEL: Left L4-5 MEDICATIONS: 1.) 80 mg triamcinolone (Kenalog) IA 2.) 5 cc sensorcaine RESPONSE: Pre procedure pain level was 10/10. Post procedure pain level was 7/10. PROCEDURE : 1. Fluoroscopically guided epidural injection. The risks, benefits and alternatives to the procedure were explained and verbal and written consent w as obtained. The site was prepped in sterile fashion. Full sterile technique was used, including ca p, mask, sterile gloves and gown and a large sterile sheet. Hand hygiene and 2% chlorhexidine and/or betadine/alcohol prep was utilized per protocol for cutaneous antisepsis. The skin and subcutaneous tissues were infiltrated with local anesthetic solution. With fluoroscopic guidance the targeted epidural space was localized and positive contrast was inject ed to confirm epidural spread. Following this the prescribed medication was injected surrounding the space. The patient's preprocedure pain and post procedure pain levels were recorded. CONCLUSION: Uncomplicated fluoroscopically guided epidural injection as above. Bryan Sanchez MD on May 19, 2017 at 16:54 Board Certified Radiologist. This report was verified electronically.
[2017-05-20] VITALS: BP 128/72; PULSE 80; RESP 20; TEMP 98.2; O2SAT 94
[2017-05-20 04:00] VITALS: BP 123/68; PULSE 76; RESP 20; TEMP 97.6; O2SAT 93
[2017-05-20] MEDS: DOCUSATE SODIUM 100 MG CAP PO SCH (06:38)
[2017-05-20] MEDS ORDERED: BISACODYL 10 MG SUPP RECTAL PRN (08:30)
[2017-05-20] MEDS ORDERED: DOCU1CAP39 PO (08:33)
[2017-05-20] MEDS ORDERED: LEVA500T20 PO (08:33)
[2017-05-20] MEDS: MAGNESIUM HYDROXIDE SUSP 30 ML CUP PO PRN (08:35)
[2017-05-20] MEDS: LISINOPRIL 20 MG TAB PO SCH (08:35)
[2017-05-20] MEDS: ATORVASTATIN 10 MG TAB PO SCH (08:35)
[2017-05-20] MEDS: LEVOFLOXACIN 500 MG TAB PO SCH (08:35)
--- NOTE | 2017-05-20 08:35 | HHI.DCPOC ---
Discharge Care Plan Diagnosis: (1) Lumbar radicular pain (2) Scalp laceration (3) HTN (hypertension), benign (4) Gait instability (5) Syncope and collapse (6) Hyperlipidemia (7) Depression (8) Anxiety Goals to Promote Your Health * To prevent worsening of your condition and complications * To maintain your health at the optimal level Directions to Meet Your Goals Take your medications as prescribed Follow your dietary instruction Follow activity as directed Keep your appointments as scheduled Take your immunizations and boosters as scheduled If your symptoms worsen call your PCP, if no PCP go to Urgent Care Center or Emergency Room Smoking is Dangerous to Your Health. Avoid second hand smoke Call the 24-hour hour crisis hotline for domestic abuse at Louise Zepeda May 20, 2017 08:35
[2017-05-20 08:36] VITALS: BP 136/78; PULSE 85; RESP 16; TEMP 98.6
[2017-05-20] MEDS: TIMOLOL MALEATE 0.5% OPHT SOLN 5 ML BTL EACH EYE SCH (08:36)
[2017-05-20] MEDS: ACETAMINOPHEN/HYDROcodone 325 MG/5 MG TAB PO PRN (08:36)
[2017-05-20] MEDS ORDERED: MAGN400S PO (08:54)
--- NOTE | 2017-05-20 08:55 | HHI.DS ---
Discharge Summary Admission Date May 17, 2017 at 10:00 Discharge Date: May 20, 2017 Admitting Diagnosis Syncope, gait instability (1) Syncope and collapse Diagnosis: Principal (2) Scalp laceration Diagnosis: Secondary (3) HTN (hypertension), benign Diagnosis: Secondary (4) Hyperlipidemia Diagnosis: Secondary (5) Anxiety Diagnosis: Secondary (6) Depression Diagnosis: Secondary Consultants Dr. Clark Apple - Neurosurgery Brief History Ms. Espinosa is a pleasant 81 y/o WF with HTN, hyperlipidemia, depression, and sciatica who presented to the ED at [facility] on 05/17/17 after a syncopal episode. Pt reports that she has been having issues with increased back pain related to her sciatica since last , 05/13/17, when she woke up in severe pain and couldn't get out of bed. She states that she was using a heating pad as needed for the back pain and was able to ambulate some with the use of her walker. She had also reported that yesterday she had increased urinary frequency but denies any dysuria. She states that she was having urinary incontinence yesterday. Denies any fevers/chills. This morning she woke up around 5:30AM and was ambulating to the kitchen with her walker and then developed some lightheadedness and had syncope. She states that she thinks she was passed out for about 15 minutes. She had hit her head on the tile floor and had noted blood on the floor. She was able to get to the phone and called her neighbor around 6:30AM who brought her to the ED. Pts labs at admission were unrevealing. UA was abnormal indicating a possible UTI. Pelvic Xray was negative for any acute fractures. Cervical spine CT was negative for fracture, only noting mild degenerative changes. She reports that she has had issues with palpitations over the last several months since her son in August 2016. She did not specifically have any palpitations this morning prior to the syncope. She had an outpt workup with Cardiology including a 7 day event monitor in 01/2017 which noted sinus rhythm, sinus octavia, and sinus tachy. She had a negative Lexiscan in November 2016. Pt reports that she has not been eating well and is having issues with depression since the of her son last year. Pt denies any chest pain, SOB, diaphoresis, nausea/vomiting, abdominal pain. She has lost almost 20lbs since July 2016. CBC/BMP: 05/18/17 0658 05/18/17 0658 Significant Findings Laboratory Tests Test 05/17/17 05/18/17 10:17 06:58 Urine Turbidity HAZY (CLEAR) Urine Protein 30 mg/dL (NEG-TRACE) Urine Ketones 40 mg/dL (NEG) Urine Occult Blood SMALL (NEG) Urine Nitrite POS (NEG) Urine Leukocyte Esterase LARGE (NEG) Urine RBC 22 /hpf (0-3) Urine WBC Clumps FEW (NONE) Urine Bacteria MANY /hpf (NONE) Hemoglobin 11.5 GM/DL (11.6-15.3) Hematocrit 34.0 % (35.0-46.0) Neutrophils (%) (Auto) 73.0 % (16.0-70.0) Monocytes (%) (Auto) 8.3 % (0.0-8.0) Estimat Glomerular Filtration 82 ML/MIN (>89) Rate Imaging Last Impressions Epidural Injection 05/19/17 0000 Signed Impressions: Service Date/Time: Friday, May 19, 2017 16:05 - CONCLUSION: Uncomplicated fluoroscopically guided epidural injection as above. Bryan Sanchez MD Head CT 05/17/17 0757 Signed Impressions: Service Date/Time: Wednesday, May 17, 2017 08:28 - CONCLUSION: Negative for acute process. Pierre Garnett MD FACR Chest X-Ray 05/17/17 0757 Signed Impressions: Service Date/Time: Wednesday, May 17, 2017 09:02 - CONCLUSION: No acute cardiopulmonary abnormality is identified. Devaughn Robert MD Cervical Spine CT 05/17/17 0757 Signed Impressions: Service Date/Time: Wednesday, May 17, 2017 08:31 - CONCLUSION: Negative for fracture. Mild degenerative changes. Pierre Garnett MD FACR Lumbar Spine MRI 05/17/17 0000 Signed Impressions: Service Date/Time: Wednesday, May 17, 2017 18:42 - CONCLUSION: 1. Moderate size posterior central protrusion at the L5-S1 level. 2. Mild annular disc bulge with superimposed small broad-based posterior central protrusion at the L4-5 level with mild mass effect on the anterior thecal sac. 3. Minimal disc bulge at the T12-L1 level. 4. Degenerative disc changes greatest at the L4-5 and L5-S1 levels. Andrea Lafleur MD Hip and Pelvis X-Ray 05/17/17 0000 Signed Impressions: Service Date/Time: Wednesday, May 17, 2017 08:57 - CONCLUSION: Unremarkable examination of the left hip. Devaughn Birch MD PE at Discharge General: NAD, AAOx3 Chest: CTA Cardiac: Regular Abd: +BS, soft ND/NT Ext: No edema, LLE weakness unable to lift off the bed unassisted and dorsiflexion improving Hospital Course Pt is an 81 y/o female with HTN, hyperlipidemia, sciatica and depression who was admitted after a syncopal episode. She has been having increased issues with sciatica and back pain radiating into the left leg for the previous 4 days prior to admission. Pt had also noted urinary frequency and incontinence one day prior to admission and UA was abnormal at admission. Pt has not been eating well and has been having issues with weight loss and depression since the of her son, 9 months ago. The exact cause for the pts syncope is unclear. ? Vasovagal related to back pain vs. other. MRI lumbar spine --> Moderate size posterior central protrusion at the L5-S1 level. Mild annular disc bulge with superimposed small broad-based posterior central protrusion at the L4-5 level with mild mass effect on the anterior thecal sac. Minimal disc bulge at the T12- L1 level. Degenerative disc changes greatest at the L4-5 and L5-S1 levels. Neurosurgery was consulted, no surgical intervention felt to be necessary. They recommended continued PT and that the pt may benefit from JINA. IR was consulted and pt had L4-L5 JINA on 05/19/17. Pt had decreased pain and increased mobility of the LLE after the JINA. Pt was found to have a UTI with urine culture growing Klebsiella, sensitive to Fluoroquinolones with NIKOLAS <1. She was started on Levaquin 500mg po daily on and will be continued through 05/22/17. Pt is planned for SNF placement for continued rehab efforts. She will be prescribed [place] PRN while at rehab. She will also be continued on Colace BID and MOM PRN for constipation prevention Pt Condition on Discharge: Stable Discharge Disposition: Discharge to SNF Discharge Instructions DIET: Follow Instructions for: Heart Healthy Diet Activities you can perform: Regular-No Restrictions Follow up Referrals: PCP Follow-up - [address] Zac Rosenbaum New Medications: Docusate Sodium (Dok) 100 Mg Cap 100 MG PO Q12H constipation #60 CAP Levofloxacin (Levaquin) 500 Mg Tablet 500 MG PO DAILY UTI #2 TAB Continued Medications: Lisinopril (Lisinopril) 20 Mg Tab 20 MG PO DAILY #30 Ref 0 TAB Quetiapine (Quetiapine) 50 Mg Tab 50 MG PO HS depression #30 Ref 0 TAB Rosuvastatin (Rosuvastatin) 5 Mg Tab 5 MG PO DAILY Cholesterol Management #30 Ref 0 TAB Timolol Opth Drops (Timolol Opth Drops) 0.5 % Soln 1 DROP EACH EYE BID Glaucoma #1 Ref 0 BOTTLE Louise Zepeda May 20, 2017 08:54 Horacio Mathis MD May 20, 2017 10:34
[2017-05-20] MEDS ORDERED: ALPR1TAB3 PO (10:46)
[2017-05-20] MEDS ORDERED: HYDR-3516 PO (10:46)
[2017-05-20 10:58] VITALS: BP 127/62; PULSE 74; RESP 14; TEMP 98.8; O2SAT 94
[2017-05-20] MEDS: ALPRAZolam 1 MG TAB PO PRN (12:11)
== END 2017-05-20 14:30 | disposition home or self-care (01) ==
LOC: NEPE 07:34 → NEDA 10:00 → NEPHCDU 11:23
PROVIDERS: ADMIT Hospitalist; ATTEND Hospitalist
DX: R55 Syncope and collapse (principal); S01.01XA Laceration without foreign body of scalp, initial encounter; M54.32 Sciatica, left side; Z23 Encounter for immunization; R35.0 Frequency of micturition; R32 Unspecified urinary incontinence; R42 Dizziness and giddiness; R00.2 Palpitations; R63.4 Abnormal weight loss; R53.1 Weakness; M51.16 Intervertebral disc disorders with radiculopathy, lumbar region; N39.0 Urinary tract infection, site not specified; B96.1 Klebsiella pneumoniae [K. pneumoniae] as the cause of diseases classified elsewhere; R26.9 Unspecified abnormalities of gait and mobility; M51.37 Other intervertebral disc degeneration, lumbosacral region; M25.552 Pain in left hip; R51 Headache; R94.31 Abnormal electrocardiogram [ECG] [EKG]; M48.06 Spinal stenosis, lumbar region; I34.1 Nonrheumatic mitral (valve) prolapse; I10 Essential (primary) hypertension; E78.5 Hyperlipidemia, unspecified; E78.00 Pure hypercholesterolemia, unspecified; G62.9 Polyneuropathy, unspecified; F41.9 Anxiety disorder, unspecified; F32.9 Major depressive disorder, single episode, unspecified; K21.9 Gastro-esophageal reflux disease without esophagitis; K58.9 Irritable bowel syndrome, unspecified; M19.90 Unspecified osteoarthritis, unspecified site; Z79.899 Other long term (current) drug therapy; Z85.3 Personal history of malignant neoplasm of breast; Z90.13 Acquired absence of bilateral breasts and nipples
CPT/HCPCS: 12031; 62323; 70450; 71010; 72125; 72148; 73502; 80048; 80053; 81001; 82550; 83735; 83880; 84484; 85025; 85610; 85730; 87077; 87086; 87186; 90471; 90714; 93005; 96365; 97163; 97530; 99285; G0378; G8987; G8988; J3301; J7030; Q9967

== ENCOUNTER → 2017-07-08 | Day surgery (SDC) | payer MEDICARE ==
[~2017-07-08] VITALS: Ht 172.7 cm; Wt 70.0 kg
[~2017-07-08] MED LIST changes: +ACETAMINOPHEN 325 MG TAB PO PRN; +ALEV220T14 PO; +CHLORHEXIDINE GLUCONATE 2 % 1 PACK (2 CLOTHS) TOPICAL PRN; +DOCU1CAP39 PO; +HYALURONIDASE/LIDOCAINE/EPINEPHRINE/BUPIVACAINE 4.5 ML SYR RIGHT EYE ONE; +HYALURONIDASE/LIDOCAINE/EPINEPHRINE/BUPIVACAINE 6 ML SYR RIGHT EYE ONE; +HYDR-3516 PO; +INSULIN HUMAN REGULAR 1,000 UNITS/10 ML VIAL SQ PRN; +LACTATED RINGER'S 1000 ML IV PRN; +LEVA500T20 PO; +LIDOCAINE HCL 1% PF 30 ML VIAL ONE; +MAGN400S PO; +META48.53 PO; -MIRTA15 PO; +POVIDONE IODINE 5% (ANTISEPSIS KIT) 4 APPLICATIONS EACH NARE PRN; +PROPARACAINE HCL 0.5% OPHT SOLN 15 ML BTL RIGHT EYE ONE; +PROPOFOL 200 MG/20 ML AMP ONE; +QUET5TAB PO; +SODIUM CHLORID 0.9% 500 ML IV PRN; +TOBRAMYCIN/DEXAMETHASONE OPTH OINT 3.5 GM TUBE ONE
[2017-07-08 06:45] VITALS: BP 120/69; PULSE 86; RESP 16; TEMP 98.5; O2SAT 98
[2017-07-08 06:50] VITALS: PULSE 86
[2017-07-08] MEDS: CYCLOPENTOLATE HCL 1% OPHT SOLN 2 ML BTL RIGHT EYE SCH ×4 (06:50→07:05)
[2017-07-08] MEDS: PHENYLEPHRINE HCL 10% OPTH SOLN 5 ML BTL RIGHT EYE SCH ×4 (06:50→07:05)
[2017-07-08] MEDS: FLURBIPROFEN 0.03% OPHT SOLN 2.5 ML BTL RIGHT EYE SCH ×4 (06:50→07:05)
[2017-07-08] MEDS: TROPICAMIDE 1% OPHT SOLN 15 ML BTL RIGHT EYE SCH ×4 (06:50→07:05)
[2017-07-08 07:33] VITALS: PULSE 74
[2017-07-08 09:40] VITALS: BP 112/69; PULSE 80; RESP 16; TEMP 97.7; O2SAT 98
--- NOTE | 2017-07-08 13:21 | MP ---
cc: JORGE MORRIS M.D. [facility] #[id number] DATE OF SURGERY 07/08/2017 PREOPERATIVE DIAGNOSIS Visually significant cataract right eye. POSTOPERATIVE DIAGNOSIS Visually significant cataract right eye. OPERATION Phacoemulsification with posterior chamber lens implantation, right eye. SURGEON Jorge Morris MD ANESTHESIA Retrobulbar with MAC. COMPLICATIONS None PROCEDURE After informed consent was obtained, the patient was brought into the operative suite and placed on appropriate monitors by the Anesthesia Service. The patient had received a prior retrobulbar injection of local anesthetic by the Anesthesia Service in the holding area. The patient's operative eye was then prepped and draped in the usual sterile fashion. A wire lid speculum was placed. A paracentesis incision was made in the peripheral cornea with a 1 mm jae keratome. The anterior chamber was filled with viscoelastic. The anterior chamber was then entered through a stepped, clear corneal incision using a sharp 3 mm jae keratome. A circular tear capsulorrhexis was then made with a bent needle cystitome. Following hydrodissection of the lens nucleus with balanced saline, phacoemulsification of the nucleus was performed using a modified chopping technique. The remaining cortex was removed with irrigation/aspiration. The prior two procedures were both performed using the handpieces of the [employer] phaco unit. The capsular bag was then filled with viscoelastic. The intraocular lens was then injected into the capsular bag and positioned. The type of intraocular lens and its power can be found elsewhere in this chart. The remaining viscoelastic was then removed from the anterior chamber with the IA handpiece. The anterior chamber was reformed with balanced saline. The wound was then closed securely with stromal hydration. It was found to be watertight to an intraocular pressure of at least 30 mmHg by palpation. A small amount of balanced salt solution was then removed through the paracentesis site and the intraocular pressure at the end of the case was approximately 20 by palpation. All drapes were then removed. TobraDex ointment was then placed in the eye, which was closed beneath a semi-pressure patch dressing. The patient tolerated this procedure well and left the operating room awake and alert. The patient is to follow-up in my office in the morning. MD RADHA Cruz/ANDIE /10:16 AM /1:17 PM
== END | disposition home or self-care (01) ==
LOC: PHSDC 06:10
PROVIDERS: ATTEND Optometrist Occupational Vision
DX: H25.811 Combined forms of age-related cataract, right eye (principal)
CPT/HCPCS: 00142; 66984; J7040; V2632

== ENCOUNTER → 2018-01-13 | Day surgery (SDC) | payer MEDICARE ==
[~2018-01-13] VITALS: Ht 172.7 cm; Wt 70.5 kg
[~2018-01-13] MED LIST changes: -ACETAMINOPHEN 325 MG TAB PO PRN; -DOCU1CAP39 PO; +HYALURONIDASE/LIDOCAINE/BUPIVACAINE 5 ML SYR LEFT EYE ONE; -HYALURONIDASE/LIDOCAINE/EPINEPHRINE/BUPIVACAINE 4.5 ML SYR RIGHT EYE ONE; -HYALURONIDASE/LIDOCAINE/EPINEPHRINE/BUPIVACAINE 6 ML SYR RIGHT EYE ONE; -HYDR-3516 PO; -INSULIN HUMAN REGULAR 1,000 UNITS/10 ML VIAL SQ PRN; -LEVA500T20 PO; +PROPARACAINE HCL 0.5% OPHT SOLN 15 ML BTL LEFT EYE ONE; -PROPARACAINE HCL 0.5% OPHT SOLN 15 ML BTL RIGHT EYE ONE; +SODIUM CHLORID 0.9% 500 ML INJ 500 ML ONE; -SODIUM CHLORID 0.9% 500 ML IV PRN
[2018-01-13 07:20] VITALS: PULSE 71
[2018-01-13] MEDS: FLURBIPROFEN 0.03% OPHT SOLN 2.5 ML BTL LEFT EYE SCH ×4 (07:25→07:40)
[2018-01-13] MEDS: PHENYLEPHRINE HCL 10% OPTH SOLN 5 ML BTL LEFT EYE SCH ×4 (07:25→07:40)
[2018-01-13] MEDS: CYCLOPENTOLATE HCL 1% OPHT SOLN 2 ML BTL LEFT EYE SCH ×4 (07:25→07:40)
[2018-01-13] MEDS: TROPICAMIDE 1% OPHT SOLN 15 ML BTL LEFT EYE SCH ×4 (07:25→07:40)
[2018-01-13 08:06] VITALS: PULSE 72
[2018-01-13 09:12] VITALS: TEMP 97.2
[2018-01-13 09:30] VITALS: BP 121/67; PULSE 69; RESP 16; O2SAT 99
--- NOTE | 2018-01-15 20:30 | MP ---
cc: JORGE MORRIS M.D. DATE OF SURGERY: 01/13/2018. [facility] NUMBER: [id number]. PREOPERATIVE DIAGNOSIS Visually significant cataract left eye. POSTOPERATIVE DIAGNOSIS Visually significant cataract left eye. OPERATION Phacoemulsification with posterior chamber lens implantation, left eye. SURGEON Jorge Morris MD ANESTHESIA Retrobulbar with MAC. COMPLICATIONS None DESCRIPTION OF THE PROCEDURE IN DETAIL: After informed consent was obtained, the patient was brought into the operative suite and placed on appropriate monitors by the Anesthesia Service. The patient had received a prior retrobulbar injection of local anesthetic by the Anesthesia Service in the holding area. The patient's operative eye was then prepped and draped in the usual sterile fashion. A wire lid speculum was placed. A paracentesis incision was made in the peripheral cornea with a 1 mm jae keratome. The anterior chamber was filled with viscoelastic. The anterior chamber was then entered through a stepped, clear corneal incision using a sharp 3 mm jae keratome. A circular tear capsulorrhexis was then made with a bent needle cystitome. Following hydrodissection of the lens nucleus with balanced saline, phacoemulsification of the nucleus was performed using a modified chopping technique. The remaining cortex was removed with irrigation/aspiration. The prior two procedures were both performed using the handpieces of the [employer] phaco unit. The capsular bag was then filled with viscoelastic. The intraocular lens was then injected into the capsular bag and positioned. The type of intraocular lens and its power can be found elsewhere in this chart. The remaining viscoelastic was then removed from the anterior chamber with the IA handpiece. The anterior chamber was reformed with balanced saline. The wound was then closed securely with stromal hydration. It was found to be watertight to an intraocular pressure of at least 30 mmHg by palpation. A small amount of balanced salt solution was then removed through the paracentesis site and the intraocular pressure at the end of the case was approximately 20 by palpation. All drapes were then removed. TobraDex ointment was then placed in the eye, which was closed beneath a semi-pressure patch dressing. The patient tolerated this procedure well and left the operating room awake and alert. The patient is to follow-up in my office in the morning. MD RADHA Cruz/JOSEP /9:53 AM /8:26 PM
== END | disposition home or self-care (01) ==
LOC: PHSDC 06:28
PROVIDERS: ATTEND Optometrist Occupational Vision
DX: H26.9 Unspecified cataract (principal)
CPT/HCPCS: 00142; 66984; J7040; V2632